=== PATIENT | female | born 1940 | race Caucasian/White ===

== ENCOUNTER → 2019-06-23 17:17 | Outpatient (CLI) | payer MEDICARE, SELFPAY ==
[2019-06-23 18:25] LABS: C-Reactive Protein Quant < 0.5 mg/dL (<1.0)
[2019-06-23 18:37] LABS: Erythrocyte Sedimentation Rate 9 MM/HR (0-20)
== END ==
PROVIDERS: Visit Provider Ophthalmology
DX: H34.8120 Central retinal vein occlusion, left eye, with macular edema (principal)
CPT/HCPCS: 36415; 85651; 86140

== ENCOUNTER 2020-02-17 15:35 | Inpatient (IN) | payer MEDICARE, SELFPAY ==
[2020-02-17] VITALS (10 sets, daily range): BP systolic 97–127; BP diastolic 44–59; PULSE 59–72; RESP 12–18; TEMP 35.9–36.9; O2SAT 96–100; BMI 18.6
--- NOTE | 2020-02-17 15:55 | ED_ITS ---
HPI - General Adult General Chief complaint: GI Bleed Stated complaint: 2x hx fatigue/ loss of appetite/ gi symptoms Time Seen by Provider: 02/17/20 15:39 Source: patient and family () Mode of arrival: Ambulatory Limitations: no limitations History of Present Illness HPI narrative: 79-year-old female here with her for evaluation of fatigue and concerns for GI bleed and anemia. Reported that for the past several days if not week patient has been very fatigued did home difficulty standing. Lightheaded. She told her today that she has been having dark colored stools for the past several days. Had a very large black bowel movement just prior to arrival. They called their primary doctor earlier today who sent them to the hospital to get labs. After arrival here in the hospital patient's thought that she should check in to the emergency department. Patient denies any abdominal pain. She did admit to having the black colored stools. Denies any alcohol use. Denies any nonsteroidal anti-inflammatory use. Is on Eliquis for atrial fibrillation. Her last dose was greater than 24 hours ago. Has never had a GI bleed in the past. She states that her last colonoscopy was 14 months ago and has reports that it was ?normal? Related Data Allergies Allergy/AdvReac Type Severity Reaction Status Date / Time No Known Drug Allergies Allergy Verified 02/17/20 16:45 Review of Systems Constitutional Constitutional: Reports fatigue, Denies fever(s) and Reports malaise Cardiovascular Cardiovascular: Denies chest pain and Denies dyspnea Respiratory Respiratory: Denies dyspnea Gastrointestinal Gastrointestinal: Denies abdominal pain, Denies nausea and Denies vomiting Comments: Dark colored stools Genitourinary Genitourinary: Denies dysuria Musculoskeletal Musculoskeletal: Denies myalgias and Denies arthralgias Integumentary/Breasts Skin/Breast: Denies rash Endocrine Endocrine: Reports fatigue Hematologic/Lymphatic Hematologic/Lymphatic: Denies easy bleeding and Denies easy bruising Patient History Medical History Atrial fibrillation (Acute) Central retinal vein occlusion of right eye (Acute) Diverticulosis (Acute) Hypercholesterolemia (Acute) Hypertension (Acute) Kyphosis (Acute) Mild cognitive impairment (Acute) Osteoporosis (Acute) Scoliosis (Acute) Social History marital status: lives independently: Yes Smoking Status: Former smoker Exam Initial Vital Signs Initial Vital Signs: Vital Signs Temperature 96.7 F L 02/17/20 15:35 Pulse Rate 66 02/17/20 15:35 Respiratory Rate 14 02/17/20 15:35 Blood Pressure 100/46 L 02/17/20 15:35 Pulse Oximetry 99 02/17/20 15:35 Const General: cooperative, comfortable and well developed Limitations: mental status not altered HENMT Head: normal to inspection and normocephalic Resp Effort & Inspection: normal respiratory effort Auscultation: clear to auscultation bilaterally Cardio Rate: regular rate Rhythm: regular rhythm GI Inspection: non-distended Palpation: soft and No firm Rectal Exam: normal sphincter tone and heme positive stool Skin Lesions: no lesions Rashes: no rashes Neuro General: alert and awake Speech: speech normal Extrem General: normal to inspection and capillary refill normal Scores GCS Lovely coma scale eye opening: Spontaneous [place] coma scale verbal response: Orientated Lovely coma scale motor response: Obey commands [place] coma scale total score: 15 Course Orders Ordered: ED Orders 02/17/20 15:57 Complete Blood Count AUTO DIFF Stat Comprehensive Metabolic Panel Stat Ethanol (ETOH) Stat Lipase Stat Packed Cells Stat Partial Thromboplastin Time Stat Prothrombin Time INR Stat Type and Screen Stat 02/17/20 16:50 Consult to General Surgery Stat Pantoprazole Sodium 80 mg/ (Sodium Chloride) 100 mls @ 10 mls/hr IV CONT BRINDA Discontinued Medications Pantoprazole Sodium (Protonix) 80 mg IV NOW ONE Stop: 02/17/20 16:50 Vital Signs Vital signs: Vital Signs - 8 hr 02/17/20 15:35 02/17/20 16:35 Temperature 96.7 F L 96.9 F L Pulse Rate 66 64 Respiratory Rate 14 14 Blood Pressure 100/46 L Blood Pressure [Left Arm] 100/46 L Pulse Oximetry 99 100 Medical Decision Making Medical Records Medical records reviewed: Yes I reviewed the patient's medical records. Lab Data Lab results reviewed: Yes I reviewed the patient's lab results. Result diagrams: 02/17/20 15:57 02/17/20 15:57 Labs: Lab Results 02/17/20 02/17/20 02/17/20 Range/Units 15:57 15:57 15:57 WBC 10.6 (4.5-11.0) X10^3/uL RBC 2.01 L (4.0-5.2) X10^6/uL Hgb 6.1 L* (12.0-16.0) g/dL Hct 17.9 L* (36-46) % MCV 89.2 (80-100) fL MCH 30.2 (26-34) PG MCHC 33.8 (30-36) % RDW 14.9 H (11.6-14.8) % Plt Count 354 (150-400) X10^3/uL Neut % (Auto) 86.6 H (50-75) % Lymph % (Auto) 7.3 L (25-40) % [place] % (Auto) 5.8 (3-14) % Eos % (Auto) 0.0 L (2-4) % Baso % (Auto) 0.3 (0-2) % Neut # (Auto) 9200 H (6374-0619) /uL Lymph # (Auto) 800 L (9102-5134) /uL [place] # (Auto) 600 (0-900) /uL Eos # (Auto) 0 (0-450) /uL Baso # (Auto) 0 (0-100) /uL PT 17.0 H (10.1-12.7) SECONDS INR 1.5 H (0.9-1.3) APTT 26 L (26.4-36.2) SECONDS Sodium 134 L (137-145) mmol/L Potassium 4.4 (3.4-5.1) mmol/L Chloride 100 (98-107) mmol/L Carbon Dioxide 20 L (22-32) mmol/L BUN 30 H (7-17) mg/dL Creatinine 1.14 H (0.52-1.04) mg/dL Estimated GFR 46.1 L (>60) mL/min BUN/Creatinine Ratio 26.3 H (6-22) Glucose 155 H (80-110) mg/dL Calcium 9.7 (8.4-10.2) mg/dL Total Bilirubin 0.4 (0.2-1.3) mg/dL AST 29 (14-36) IU/L ALT 16 (<35) IU/L Alkaline Phosphatase 55 (38-126) U/L Total Protein 6.6 (6.3-8.2) g/dL Albumin 3.8 (3.5-5.0) g/dL Globulin 2.8 (1.7-4.1) g/dL Albumin/Globulin Ratio 1.4 (1.0-2.8) Lipase 248 (23-300) U/L Ethyl Alcohol < 10 ( - 10) mg/dL Blood Type Antibody Screen Crossmatch 02/17/20 Range/Units 15:57 WBC (4.5-11.0) X10^3/uL RBC (4.0-5.2) X10^6/uL Hgb (12.0-16.0) g/dL Hct (36-46) % MCV (80-100) fL MCH (26-34) PG MCHC (30-36) % RDW (11.6-14.8) % Plt Count (150-400) X10^3/uL Neut % (Auto) (50-75) % Lymph % (Auto) (25-40) % [place] % (Auto) (3-14) % Eos % (Auto) (2-4) % Baso % (Auto) (0-2) % Neut # (Auto) (5838-0832) /uL Lymph # (Auto) (1549-0713) /uL [place] # (Auto) (0-900) /uL Eos # (Auto) (0-450) /uL Baso # (Auto) (0-100) /uL PT (10.1-12.7) SECONDS INR (0.9-1.3) APTT (26.4-36.2) SECONDS Sodium (137-145) mmol/L Potassium (3.4-5.1) mmol/L Chloride (98-107) mmol/L Carbon Dioxide (22-32) mmol/L BUN (7-17) mg/dL Creatinine (0.52-1.04) mg/dL Estimated GFR (>60) mL/min BUN/Creatinine Ratio (6-22) Glucose (80-110) mg/dL Calcium (8.4-10.2) mg/dL Total Bilirubin (0.2-1.3) mg/dL AST (14-36) IU/L ALT (<35) IU/L Alkaline Phosphatase (38-126) U/L Total Protein (6.3-8.2) g/dL Albumin (3.5-5.0) g/dL Globulin (1.7-4.1) g/dL Albumin/Globulin Ratio (1.0-2.8) Lipase (23-300) U/L Ethyl Alcohol ( - 10) mg/dL Blood Type O Positive Antibody Screen Negative Crossmatch See Detail ECG Data Attestation: I personally reviewed and interpreted this ECG as follows: Prior ECG tracings: not available for review Interpretation: Sinus rhythm Ventricular rate is 61 Normal axis Normal QRS Normal QTC Nonspecific ST T wave changes MDM Narrative Medical decision making narrative: Patient not tachycardic, not hypotensive. Does have heme-positive stool. H&H low. Blood ordered. Protonix started. I do suspect this is related to her anticoagulation. Her last dose of anticoagulation was greater than 24 hours ago. Discussed the case with Dr. Ezio rand with internal medicine who will admit. Discussed case with general surgery who evaluated the patient in the emergency department. Discussed the admission with the patient and her who is at bedside. They expressed understanding and agreement. Critical Care Time Critical Care Time Critical Care Time: Yes Total Critical Care Time: 35 Attestation: The high probability of a clinically significant, sudden or life threatening deterioration of the cardiovascular, hemodynamically system(s) required my full and direct attention, intervention and personal management. The aggregate critical care time was 35 minutes. This time is in addition to time spent performing reported procedures but includes the following: [] Data Review and interpretation [] Patient assessment and monitoring of vital signs [] Documentation [] Medication orders and management Discharge Plan Departure Patient Disposition: Admitted As Inpatient Clinical Impression: GI bleed Qualifiers: GI bleed type/associated pathology: unspecified gastrointestinal hemorrhage type Qualified Code(s): K92.2 - Gastrointestinal hemorrhage, unspecified Anemia Qualifiers: Anemia type: unspecified type Qualified Code(s): D64.9 - Anemia, unspecified Admit Date/Time: 02/17/20 16:57 Admit Provider: Memo Moncada
[2020-02-17 16:16] LABS: INR 1.5 (0.9-1.3)
[2020-02-17 16:19] LABS: PTT Partial Thromboplastin Tim 26 SECONDS (26.4-36.2)
[2020-02-17 16:21] LABS: Alanine Aminotransferase 16 IU/L (<35); Albumin 3.8 g/dL (3.5-5.0); Albumin Globulin Ratio 1.4 (1.0-2.8); Alkaline Phosphatase 55 U/L (38-126); Aspartate Aminotransferase 29 IU/L (14-36); BUN Creatinine Ratio 26.3 (6-22); Bilirubin Total 0.4 mg/dL (0.2-1.3); Blood Urea Nitrogen 30 mg/dL (7-17); Calcium 9.7 mg/dL (8.4-10.2); Carbon Dioxide 20 mmol/L (22-32); Chloride 100 mmol/L (98-107); Estimated Glomerular Filt Rate 46.1 mL/min (>60); Ethanol (ETOH) < 10 mg/dL; Globulin 2.8 g/dL (1.7-4.1); Glucose 155 mg/dL (80-110); HEMOLYSIS < 15 (0-50); Lipase 248 U/L (23-300); Potassium 4.4 mmol/L (3.4-5.1); Sodium 134 mmol/L (137-145); Total Protein 6.6 g/dL (6.3-8.2)
[2020-02-17 16:24] LABS: Eosinophils Absolute Auto 0 /uL (0-450); Lymphocytes Absolute Auto 800 /uL (1100-4500); Monocytes Absolute Auto 600 /uL (0-900)
[2020-02-17 16:28] LABS: Add Manual Diff / Slide Review NO; Basophils Absolute Auto 0 /uL (0-100); Basophils Percent Auto 0.3 % (0-2); Lymphocytes Percent Auto 7.3 % (25-40); Mean Corpuscular HGB Conc 33.8 % (30-36); Mean Corpuscular Hemoglobin 30.2 PG (26-34); Mean Corpuscular Volume 89.2 fL (80-100); Monocytes Percent Auto 5.8 % (3-14); Neutrophils Absolute Auto 9200 /uL (1500-7000); Neutrophils Percent Auto 86.6 % (50-75); Platelet Count 354 X10^3/uL (150-400); Red Blood Cell Count 2.01 X10^6/uL (4.0-5.2); Red Cell Distribution Width 14.9 % (11.6-14.8); White Blood Cell Count 10.6 X10^3/uL (4.5-11.0)
[2020-02-17 16:30] LABS: Hemoglobin 6.1 g/dL (12.0-16.0)
[2020-02-17 16:31] LABS: Hematocrit 17.9 % (36-46)
--- NOTE | 2020-02-17 16:38 | PC.NURSE ---
Patient is not following commands appropriately. She has cold pale skin on her arms. Her eye beds are pale and white.
--- NOTE | 2020-02-17 17:18 | PM.CN ---
History of Present Illness Consult details Date Patient Seen: 02/17/20 Time Patient Seen: 17:18 Chief complaint: 2x hx fatigue/ loss of appetite/ gi symptoms Reason for consult: GI bleed Requesting provider: Reji Zepeda Narrative: This is a 79-year-old woman with past medical history of paroxysmal atrial fibrillation on apixaban, hypertension, hyperlipidemia, osteoporosis, and mild cognitive impairment who presented to the emergency room with several days of feeling unwell and some dark stools. She c/o feeling fatigued and lightheaded. She denies any abdominal pain, nausea, vomiting, post prandial pain, or bloating. She reports very dark stools for the past couple of days. Her reports some frequent NSAID use for her chronic back pain which she takes every day, but he is unable to recall what exactly she was taking. She is on Eliquis for atrial fibrillation and her stopped giving this to her yesterday morning over concern for possible bleeding. She has never had bleeding in the past, and report a colonoscopy 14 months ago stating that it was reportedly normal. It was also noted that her colon was very tortuous and the endoscopist had great difficulty reaching the cecum. It was not clear from their recollection whether the cecum was actually reached. Labs in the ER revealed a hemoglobin of 6.1, and platelet count of 354. INR was 1.5. Pt was hemodynamically stable. 2 units PRBC were ordered for transfusion. Home meds: Metoprolol 100 mg b.i.d., amlodipine 5 mg daily, losartan 100 mg daily, simvastatin 20 mg, potassium chloride 10 mEq, metoprolol 25 mg as needed for rapid heart rate, donepezil 10 mg, Eliquis 5 mg b.i.d., Ativan 0.5 mg b.i.d. as needed ROS: All 13 systems reviewed with the patient and are negative unless otherwise stated. PE: Narrative: GENERAL APPEARANCE: Elderly female, pale, WDWN, in no distress; appears stated age. SKIN: Inspection of the skin reveals no rashes, ulcerations or petechiae. HEENT: Normocephalic atraumatic, extraocular muscles are intact, mucous membranes are moist, neck is supple without adenopathy NECK: Supple and symmetric. There was no thyroid enlargement, and no tenderness, or masses were felt. CHEST: Normal AP diameter and normal contour; normal chest expansion LUNGS: Non tachypneic; breathing comfortably and satting well on room air CARDIOVASCULAR: Regular rate and rhythm; no LE edema. ABDOMEN: Soft and nontender with normal bowel sounds. No masses or scars. MUSCULOSKELETAL: There was no tenderness or effusions noted. Muscle strength and tone were normal. EXTREMITIES: No cyanosis, clubbing or edema. NEUROLOGIC: Alert. Normal affect. Strength is +5/5 in the Upper Extremities and Lower Extremities Bilaterally. Sensation to touch was normal. Meds Home Medications and Allergies Allergies Allergy/AdvReac Type Severity Reaction Status Date / Time No Known Drug Allergies Allergy Verified 02/17/20 16:45 Exam Vital Signs (past 8 hours): - 02/17/20 15:35 02/17/20 16:35 Temperature 96.7 F L 96.9 F L Pulse Rate 66 64 Respiratory Rate 14 14 Blood Pressure 100/46 L Blood Pressure [Left Arm] 100/46 L Pulse Oximetry 99 100 Oxygen Delivery Method Room Air Objective Labs Result Diagrams: 02/17/20 15:57 02/17/20 15:57 Labs: Laboratory Results - last 24 hr 02/17/20 02/17/20 02/17/20 15:57 15:57 15:57 WBC 10.6 RBC 2.01 L Hgb 6.1 L* Hct 17.9 L* MCV 89.2 MCH 30.2 MCHC 33.8 RDW 14.9 H Plt Count 354 Neut % (Auto) 86.6 H Lymph % (Auto) 7.3 L [place] % (Auto) 5.8 Eos % (Auto) 0.0 L Baso % (Auto) 0.3 Neut # (Auto) 9200 H Lymph # (Auto) 800 L [place] # (Auto) 600 Eos # (Auto) 0 Baso # (Auto) 0 PT 17.0 H INR 1.5 H APTT 26 L Sodium 134 L Potassium 4.4 Chloride 100 Carbon Dioxide 20 L BUN 30 H Creatinine 1.14 H Estimated GFR 46.1 L BUN/Creatinine Ratio 26.3 H Glucose 155 H Calcium 9.7 Total Bilirubin 0.4 AST 29 ALT 16 Alkaline Phosphatase 55 Total Protein 6.6 Albumin 3.8 Globulin 2.8 Albumin/Globulin Ratio 1.4 Lipase 248 Ethyl Alcohol < 10 Blood Type Antibody Screen Crossmatch 02/17/20 15:57 WBC RBC Hgb Hct MCV MCH MCHC RDW Plt Count Neut % (Auto) Lymph % (Auto) [place] % (Auto) Eos % (Auto) Baso % (Auto) Neut # (Auto) Lymph # (Auto) [place] # (Auto) Eos # (Auto) Baso # (Auto) PT INR APTT Sodium Potassium Chloride Carbon Dioxide BUN Creatinine Estimated GFR BUN/Creatinine Ratio Glucose Calcium Total Bilirubin AST ALT Alkaline Phosphatase Total Protein Albumin Globulin Albumin/Globulin Ratio Lipase Ethyl Alcohol Blood Type O Positive Antibody Screen Negative Crossmatch See Detail Assessment & Plan Assessment and plan (1) GI bleed: Qualifiers: GI bleed type/associated pathology: unspecified gastrointestinal hemorrhage type Qualified Code(s): K92.2 - Gastrointestinal hemorrhage, unspecified Current visit: Yes Status: Acute (2) Anemia: Qualifiers: Anemia type: unspecified type Qualified Code(s): D64.9 - Anemia, unspecified Current visit: Yes Status: Acute (3) Mild cognitive impairment: Current visit: Yes Status: Acute (4) Hypertension: Current visit: Yes Status: Acute (5) Atrial fibrillation: Current visit: Yes Status: Acute Assessment & Plan narrative: Mere Rivero is a 79-year-old woman with PMH of paroxysmal atrial fibrillation on apixaban, hypertension, hyperlipidemia, osteoporosis, and mild cognitive impairment who presented to the emergency room with dark stools and hgb 6.1. She is admitted to the medicine service with a GI bleed likely secondary to upper source and symptomatic anemia. Recommendations: NPO except for water and ice chips for comfort Hold anticoagulation Protonix 40mg IV BID Transfuse per hospitalist Home meds as appropriate, with exception of blood thinners Please get outside provider documentation of her prior colonoscopy Possible EGD tomorrow if medically stable and transfused up
[2020-02-17] MEDS: PANTOPRAZOLE 40 MG VIAL 80 MG IV (17:26)
[2020-02-17] MEDS: PANTOPRAZOLE 80 MG in SODIUM CHLORIDE 0.9% 100 ML 10 ML IV (17:27)
--- NOTE | 2020-02-17 18:25 | PM.HP.1 ---
History of Present Illness History of Present Illness Date Patient Seen: 02/17/20 Time Patient Seen: 17:30 Chief complaint: 2x hx fatigue/ loss of appetite/ gi symptoms Narrative: Mere Rivero is a 79-year-old female with past medical history of paroxysmal atrial fibrillation on apixaban, hypertension, hyperlipidemia, osteoporosis, and mild cognitive impairment who presented to the emergency room with dark stools. Patient and her report that she has not been feeling well for the past week or so, feeling very fatigued and sometimes lightheaded when standing. She denies any shortness of breath, or chest pain even with exertion but has not felt much energy at all to even walk. She denies any abdominal pain. She admits to having very dark stools for the past couple of days. Her does endorse some NSAID use for her chronic back pain which she takes every day, but he is unable to recall which 1 she was taking. She is on Eliquis for atrial fibrillation and her stopped giving this to her yesterday morning over concern for possible bleeding. She has never had bleeding in the past, and report a colonoscopy 14 months ago stating that it was unremarkable. In the emergency room, patient initially had borderline low blood pressures, but was not tachycardic and other vital signs were unremarkable. Her blood pressure improved after fluids. Initial labs were remarkable for hemoglobin of 6.1, hematocrit 17.9, platelet count of 354. INR was 1.5. Chemistry showed a sodium of 134, BUN of 30, creatinine of 1.14 up from previous value of 0.8 in 2017, and her glucose was 155. Alcohol level was negative, lipase was unremarkable at 248, and LFTs were also unremarkable. Patient was ordered for 2 units PRBCs in the emergency room. Home meds: Metoprolol 100 mg b.i.d., amlodipine 5 mg daily, losartan 100 mg daily, simvastatin 20 mg, potassium chloride 10 mEq, metoprolol 25 mg as needed for rapid heart rate, donepezil 10 mg, Eliquis 5 mg b.i.d., Ativan 0.5 mg b.i.d. as needed Patient History Medical History Atrial fibrillation (Acute) Central retinal vein occlusion of right eye (Acute) Diverticulosis (Acute) Hypercholesterolemia (Acute) Hypertension (Acute) Kyphosis (Acute) Mild cognitive impairment (Acute) Osteoporosis (Acute) Scoliosis (Acute) Family & Social History Social History: lives independently Yes Safety & Behavioral: Feels Safe in Current Yes Environment Been Physically Hurt or No Threatened By a Person Tobacco & Substance use: Smoking Status Former smoker alcohol intake frequency 0-2 drinks per day Substance Use Type does not use Meds Home Medications and Allergies Allergies Allergy/AdvReac Type Severity Reaction Status Date / Time No Known Drug Allergies Allergy Verified 02/17/20 16:45 Review of Systems Review of Systems Narrative: All other systems reviewed with the patient and are negative unless otherwise stated. Exam Vital Signs (past 8 hours): - 02/17/20 15:35 02/17/20 16:35 02/17/20 17:54 Temperature 96.7 F L 96.9 F L 97.6 F Pulse Rate 66 64 68 Respiratory Rate 14 14 12 Blood Pressure 100/46 L 102/58 L Blood Pressure [Left Arm] 100/46 L Pulse Oximetry 99 100 02/17/20 18:06 02/17/20 18:12 Temperature 98.5 F 98.5 F Pulse Rate 59 L 66 Respiratory Rate 14 12 Blood Pressure 114/55 L 114/55 L Blood Pressure [Left Arm] Pulse Oximetry Oxygen Delivery Method Room Air Narrative Exam Narrative: GENERAL APPEARANCE: Elderly female, pale, but Well developed, well nourished, in no acute distress. SKIN: Inspection of the skin reveals no rashes, ulcerations or petechiae. HEENT: Normocephalic atraumatic, extraocular muscles are intact, oropharynx is clear and mucous membranes are moist, neck is supple without adenopathy NECK: Supple and symmetric. There was no thyroid enlargement, and no tenderness, or masses were felt. CHEST: Normal AP diameter and normal contour without any kyphoscoliosis. LUNGS: Auscultation of the lungs revealed no wheezes, rhonchi, or rales. CARDIOVASCULAR: There was a regular rate and rhythm without any murmurs, gallops, rubs. Peripheral pulses were 2+ and symmetric. ABDOMEN: Soft and nontender with normal bowel sounds. No ascites was noted. MUSCULOSKELETAL: There was no tenderness or effusions noted. Muscle strength and tone were normal. EXTREMITIES: No cyanosis, clubbing or edema. NEUROLOGIC: Alert. Normal affect. Strength is +5/5 in the Upper Extremities and Lower Extremities Bilaterally. Sensation to touch was normal. Objective Labs Result Diagrams: 02/17/20 15:57 02/17/20 15:57 Labs: Laboratory Results - last 24 hr 02/17/20 02/17/20 02/17/20 15:57 15:57 15:57 WBC 10.6 RBC 2.01 L Hgb 6.1 L* Hct 17.9 L* MCV 89.2 MCH 30.2 MCHC 33.8 RDW 14.9 H Plt Count 354 Neut % (Auto) 86.6 H Lymph % (Auto) 7.3 L [place] % (Auto) 5.8 Eos % (Auto) 0.0 L Baso % (Auto) 0.3 Neut # (Auto) 9200 H Lymph # (Auto) 800 L [place] # (Auto) 600 Eos # (Auto) 0 Baso # (Auto) 0 PT 17.0 H INR 1.5 H APTT 26 L Sodium 134 L Potassium 4.4 Chloride 100 Carbon Dioxide 20 L BUN 30 H Creatinine 1.14 H Estimated GFR 46.1 L BUN/Creatinine Ratio 26.3 H Glucose 155 H Calcium 9.7 Total Bilirubin 0.4 AST 29 ALT 16 Alkaline Phosphatase 55 Total Protein 6.6 Albumin 3.8 Globulin 2.8 Albumin/Globulin Ratio 1.4 Lipase 248 Ethyl Alcohol < 10 Blood Type Antibody Screen Crossmatch 02/17/20 15:57 WBC RBC Hgb Hct MCV MCH MCHC RDW Plt Count Neut % (Auto) Lymph % (Auto) [place] % (Auto) Eos % (Auto) Baso % (Auto) Neut # (Auto) Lymph # (Auto) [place] # (Auto) Eos # (Auto) Baso # (Auto) PT INR APTT Sodium Potassium Chloride Carbon Dioxide BUN Creatinine Estimated GFR BUN/Creatinine Ratio Glucose Calcium Total Bilirubin AST ALT Alkaline Phosphatase Total Protein Albumin Globulin Albumin/Globulin Ratio Lipase Ethyl Alcohol Blood Type O Positive Antibody Screen Negative Crossmatch See Detail Assessment & Plan Assessment & Plan narrative: Mere Rivero is a 79-year-old female with past medical history of paroxysmal atrial fibrillation on apixaban, hypertension, hyperlipidemia, osteoporosis, and mild cognitive impairment who presented to the emergency room with dark stools. She is admitted to the medicine service with a GI bleed likely secondary to upper source and symptomatic anemia. 1. GI bleed, acute, present on admission -patient with recent NSAID use as reported by the , and use of apixaban for paroxysmal atrial fibrillation. Stools were guaiac positive in the emergency room. - has held home apixaban, last dose yesterday morning. Will continue to hold -NPO, IV fluids -Dr. Reyna of general surgery has seen the patient and could potentially go for endoscopy tomorrow -check a post transfusion CBC, continued to follow hemoglobin and hematocrit -given Protonix 80 mg x 1, continue 40 mg b.i.d. IV -sources likely upper given elevated BUN, recent NSAID use, and recent report of negative colonoscopy a little over 1 year ago. 2. Acute blood loss anemia, secondary to above GI bleed, present on admission -presenting hemoglobin of 6.1, with symptoms of shortness of breath and dizziness. -2 unit PRBC transfusion in the emergency room, will check post transfusion CBC -continue management of GI bleeding as noted above 3. Paroxysmal atrial fibrillation -continue home rate control with metoprolol IV q.6 hours for now, once able to tolerate p.o. intake convert to oral medications 4. Hypertension, chronic -will hold home losartan 100 mg, and amlodipine 5 mg 5. Hyperlipidemia, chronic -continue simvastatin 20 mg once tolerating oral intake 6. Cognitive impairment, chronic -continue home donepezil 10 mg once tolerating oral intake, and Ativan 0.5 mg b.i.d. 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
--- NOTE | 2020-02-17 18:34 | PC.NURSE ---
patient signed consent for blood prior to receiving packed RBCs
[2020-02-17 20:22] LABS: COVID19 -Nasal RAPID Negative (Negative)
[2020-02-17] MEDS: SODIUM CHLORIDE 0.9% 1,000 ML 75 ML IV (21:35)
[2020-02-17] MEDS: LORazepam 2 MG/ML INJ 0.5 MG IV (21:50)
--- NOTE | 2020-02-17 23:36 | PC.NURSE ---
Patient arrived to floor, A&O to self and , Pt thought she was still in the ED at arrival to AC, and thought she was in [place]. Patient is very forgetful but easily re-directable and cooperative w/ staff members and plan of care. Patient arrived infusion a protonix gtt and 1 of 2 units of PRBC. Pt at times patient slurs words and has a little word salad, ED nurse had reported this same findings to this nurse in report. Patient VSS, no notable reactions to transfusion and is now on 2 of 2 units. Pt is refusing to wear SCD's, was reluctant to allow staff to do skin assessment but eventually allowed. Pt is upset about plan to remain NPO until procedure can be done tomorrow. call light w/in reach, bed in low pos. alarm active. Pt is aware to use call light w/ needs but often calls out when staff passes by room, needs reminding to use call light.
[2020-02-18] VITALS (26 sets, daily range): BP systolic 94–150; BP diastolic 46–92; PULSE 62–128; RESP 15–136; TEMP 35.8–37.5; O2SAT 90–100; BMI 18.6
--- NOTE | 2020-02-18 | PATH_ITS ---
[facility] Accession Number: [id number] . 01 Material submitted: . PART A: duodenum - DUODENAL BIOPSY PART B: gastrointestinal site - GASTRIC ANTRUM PART C: gastrointestinal site - GASTRIC BODY PART D: esophagus - DISTAL ESOPHAGUS BIOPSY . 01 Clinical history: . 2X HX FATIGUE, LOSS OF APPETITE, GI SYMPTOMS . 02 Diagnosis: A. Duodenum, Biopsy: Duodenal mucosa with gastric heterotopia. Negative for intraepithelial lymphocytosis or villous blunting. Negative for dysplasia and malignancy. . B. Stomach, Antrum, Biopsy: Acute erosive gastritis Negative for Helicobacter organisms by immunohistochemistry. Negative for intestinal metaplasia. Negative for dysplasia and malignancy. . C. Stomach, Body, Biopsy: Body-type mucosa with reactive epithelial changes. Negative for Helicobacter organisms by immunohistochemistry. Negative for intestinal metaplasia. Negative for dysplasia and malignancy. . D. Distal Esophagus, Biopsy: Squamocolumnar junctional mucosa with no diagnostic abnormality. Negative for intestinal metaplasia. Negative for dysplasia and malignancy. . [facility] 02/23/2020 1429 Local . 02 Electronically signed: . Yuliana Ellis MD, Pathologist NPI- [id number] . 01 Gross description: . Part A: DUODENAL BIOPSY: Received in formalin is 1 fragment(s) of ramirez, soft tissue measuring 0.2 x 0.1 x 0.1 cm submitted entirely in 1 cassette(s) Part B: GASTRIC ANTRUM: Received in formalin are 2 fragment(s) of ramirez, soft tissue measuring 0.1 x 0.1 x 0.1 cm to 0.2 x 0.1 x 0.1 cm submitted entirely in 1 cassette(s) Part C: GASTRIC BODY: Received in formalin is 1 fragment(s) of ramirez, soft tissue measuring 0.1 x 0.1 x 0.1 cm submitted entirely in 1 cassette(s) Part D: DISTAL ESOPHAGUS BIOPSY: Received in formalin are 2 fragment(s) of ramirez, soft tissue measuring 0.1 x 0.1 x 0.1 cm to 0.2 x 0.2 x 0.2 cm submitted entirely in 1 cassette(s) /[facility] 02/18/2020 2101 Local . 02 Microscopic: . B., C. Immunohistochemical stains were performed to evaluate for Helicobacter organisms in blocks B and C, and are both negative. The control stain showed appropriate reactivity. . D. An Alcian blue stain was performed to evaluate for intestinal metaplasia, and is negative. The control stain showed appropriate reactivity. . . * This test was developed and its performance characteristics determined by [facility]. It has not been cleared or approved by the U.S. Food and Drug Administration. The FDA has determined that such clearance or approval is not necessary. This test is used for clinical purposes. It should not be regarded as investigational or for research. . 02 Pathologist provided ICD-10: R10.9 . 02 CPT . 476186, 505091, 267385, 509439, 755748, F76059 Performed at: [facility] [address] [facility], [place], [place] [id number] MD Andrés Russo MD Phone: [phone] Performed at: 02 [facility] [place] [address] [place], [place] [id number] MD Yuliana Ellis MD Phone: [phone]
[2020-02-18] MEDS: METOPROLOL TARTRATE 5 MG/5 ML INJ IV ×2 (01:07→06:43)
[2020-02-18 05:51] LABS: Add Manual Diff / Slide Review NO; Basophils Absolute Auto 0 /uL (0-100); Basophils Percent Auto 0.4 % (0-2); Eosinophils Absolute Auto 0 /uL (0-450); Eosinophils Percent Auto 0.6 % (2-4); Hematocrit 25.1 % (36-46); Hemoglobin 8.7 g/dL (12.0-16.0); Lymphocytes Absolute Auto 1700 /uL (1100-4500); Lymphocytes Percent Auto 20.7 % (25-40); Mean Corpuscular HGB Conc 34.8 % (30-36); Mean Corpuscular Hemoglobin 30.3 PG (26-34); Mean Corpuscular Volume 86.8 fL (80-100); Monocytes Absolute Auto 900 /uL (0-900); Monocytes Percent Auto 11.6 % (3-14); Neutrophils Absolute Auto 5400 /uL (1500-7000); Neutrophils Percent Auto 66.7 % (50-75); Platelet Count 269 X10^3/uL (150-400); Red Blood Cell Count 2.89 X10^6/uL (4.0-5.2); Red Cell Distribution Width 14.6 % (11.6-14.8); White Blood Cell Count 8.1 X10^3/uL (4.5-11.0)
[2020-02-18 05:59] LABS: Alanine Aminotransferase 13 IU/L (<35); Albumin 3.2 g/dL (3.5-5.0); Albumin Globulin Ratio 1.3 (1.0-2.8); Alkaline Phosphatase 45 U/L (38-126); Aspartate Aminotransferase 25 IU/L (14-36); BUN Creatinine Ratio 25.8 (6-22); Bilirubin Total 1.1 mg/dL (0.2-1.3); Bilirubin Unconjugated 1.2 mg/dL (0.0-1.1); Blood Urea Nitrogen 23 mg/dL (7-17); Calcium 8.9 mg/dL (8.4-10.2); Carbon Dioxide 22 mmol/L (22-32); Chloride 107 mmol/L (98-107); Estimated Glomerular Filt Rate > 60.0 mL/min (>60); Globulin 2.5 g/dL (1.7-4.1); Glucose 81 mg/dL (80-110); HEMOLYSIS < 15 (0-50); Potassium 3.8 mmol/L (3.4-5.1); Sodium 136 mmol/L (137-145); Total Protein 5.7 g/dL (6.3-8.2)
[2020-02-18] MEDS: LORazepam 2 MG/ML INJ 0.5 MG IV ×3 (07:32→21:44)
[2020-02-18] MEDS: DEXTROSE 5%-0.45% NS 1,000 ML 75 ML IV (08:40)
--- NOTE | 2020-02-18 10:27 | PC.NURSE ---
Addendum entered by Jennifer Newton R.N. 02/18/20 13:32: Pt left to ENDO via transport wheelchair at 1330. Pt quite anxious stating she wish she had more warning as to being picked up earlier. Support provided. Original Note: Day Shift- Pt A&OX4, repeats statements and questions this morning, very anxious, states wanting to go home today. Do you have something to calm me down. PRN Ativan 0.5mg IV given at 0730 with good effect upon reassessment. Pt NPO, Denies nausea. theres nothing in there to make me nauseated. Blood glucose with AM lab draw was 81. BG finger stick checks ordered AC& HS, due to pt being NPO, will do Q6 hrs. Spoke with Dr. Moncada at 0745 if wanting to change IVF due to lower Blood glucose level. Verbal order to recheck finger stick glucose, and if level is below 90, switch IVF to D5 1/2 NS at 75mls/hr. Rechecked Finger stick glucose at 0830 by STEELSCOPE OPERATOR and level was 79 therefore IVF changed per new verbal order by Dr. Moncada as stated above at 0845.
[2020-02-18 12:12] LABS: Hematocrit 24.3 % (36-46); Hemoglobin 8.4 g/dL (12.0-16.0)
--- NOTE | 2020-02-18 13:15 | CM.IDA ---
Initial DCP Assessment Note: Patient is a 79 yo female, resident of [facility]. Patient presents w/ fatigue, loss of appetite, upper GI bleed is suspected. PCP: Dr Corbett Payer: JORDAN/GLENP Reviewed chart. Met briefly w/patient today, provided warm blankets w/assist from CAN LINE EXAMINERAydee Falk. Patient quite anxious today in , concerned about her NPO status and states it has been very difficult not to have any ice chips. Placed call to patient's spouse Edenilson Rivero P# [phone], introduced role. Spouse explains patient and he have been managing well at home, adult children live in [place]. [facility] is a supportive community and spouse feels confident about patient's return home when medically stable. No h/o SNF or HH. Patient is indp. and active at baseline, spouse explains PCP Dr Corbett has suggested patient has early Dementia/Alz and started patient on donepezil 10 mg once daily. Edenilson further explains patient doesn't like to talk about that which this TRANSPORTATION MAINTENANCE SUPERVISOR confirms is very typical in the beginning stages of Alz Dementia. Edenilson feels patient's short term memory loss is minimal at this time and she is able to complete all ADLs indp. Patient does not drive d/t recent loss of vision in her rt eye. Edenilson states he has a neighbor that is caring for a severely demented spouse at home and feels comfortable asking for neighbor's input re: resources as needed. P: DC home w/spouse assist via family pov is expected. r/o need for HH closer to DC Following closely for coordination of DC needs if/as they arise. HANK Isaac Discharge Planning/Care Management CM Discharge Assessment Start: 02/18/20 13:07 Freq: Status: Active Protocol: Document 02/18/20 13:07 JACINTA (Rec: 02/18/20 13:15 JACINTA [id number]) Discharge Planning Assessment Assigned Fender Finisher HANK Allen DPOA/Assigned Designee Name Edenilson Rivero, spouse Contact Information [phone] Advance Directives? Yes History Provided By Family Member,Significant Other,Medical Record Prior Living Arrangements House Household Members spouse Comment Recently lost vision in right eye Type of transporation used prior to Relies on Others admit Independent with ADL's Yes Is patient alert and oriented? Yes Needs Assistance With Managing Medications,Home Chores / Shopping Comment Spouse states short term memory loss, has a difficult time organizing. home donepezil 10 mg once tolerating oral intake, and Ativan 0.5 mg b.i.d. Comment Home Barriers to Discharge No Comment Spouse feels confident about taking patient home when she is medically cleared. Discharge Plan Home Transportation Arrangement Family Referrals Initiated None needed
--- NOTE | 2020-02-18 13:27 | PM.PREOP ---
Pre-operative Note COVID-19 COVID-19 status: Negative Result date/Date tested (Pos, Neg/Pending): 02/17/20 Interval Note History & Physical reviewed/Exam performed by Physician: Yes Changes to H&P: No H&P completed within 30 days and has changed as indicated here:: Risks and benefits of upper endoscopy, possible biopsies, possible procedures for hemostasis were discussed with the patient and her who desire to proceed with the above. Risks of bleeding, perforation, need for additional procedures were discussed.
[2020-02-18] MEDS: LACTATED RINGERS 1,000 ML 42 ML IV (13:46)
--- NOTE | 2020-02-18 14:33 | PM.OP.ENDO ---
Operative Date/Time/Diagnoses Date of procedure: 02/18/20 Time of procedure: 14:33 Pre-op diagnosis: GI bleed Post-op diagnosis: other (Gastritis, gastric ulcer x2 without active bleeding, mild distal esophagitis) Procedure & Clinicians Study performed: Esophagogastroduodenoscopy with biopsies of duodenum, gastric antrum, gastric body, and distal esophagus Same procedure as scheduled: Yes Indications: GI bleed Surgeon: Shalini Brown Procedure Notes SCOAP/Timeout: Performed Procedure in detail: The patient was brought to the room and placed in left lateral decubitus position with all bony prominences padded. General anesthesia was induced the patient was intubated. A bite block was positioned in the patient's mouth to protect the lips, teeth, and tongue for the procedure. A time-out was performed. The procedure was begun. The lubricated gastroscope was passed through the bite block and across the tongue and into the esophagus without incident. A tubular view of the esophagus was maintained as the scope was advanced through the esophagus and into the stomach. The scope was advanced through the stomach and to the pylorus. The scope was gently popped through the pylorus and into the duodenal bulb. The scope was flexed and advanced into the second and third portions of the duodenum. The 2nd and 3rd parts of the duodenum appeared normal. There were some mild erosions in the duodenal bulb, but no active bleeding. Biopsies were taken here.. The scope was withdrawn into the stomach. There was some moderate gastritis in the gastric antrum, and biopsies were taken here. There is no active bleeding at this site. There were 2 bleeding ulcers in the gastric body, and biopsies were taken at these sites. There was no active bleeding from these ulcers, but they had stigmata of recent bleeding.. The scope was retroflexed and the gastric cardia was examined. The hiatus [appeared normal]. There was no significant gapping of the hiatus. The scope was then straightened, and withdrawn into the esophagus. The Z-line was mildly irregular, but there were no large tongues of salmon mucosa coming up into the esophagus. Biopsies were taken of the distal esophagus.. The scope was then withdrawn through the esophagus with a tubular view. The scope was then withdrawn from the patient the procedure was concluded. The patient tolerated the procedure well and was transferred to the PACU in stable condition. Findings: gastric ulcer (X2) and gastritis Specimen(s): other (Biopsies of duodenal bulb, gastric antrum, gastric body x2, and distal esophagus) Complications: none Impression: The bleeding most likely from the gastritis, and gastric ulcers. It looks like her bleeding has stopped. I would hold her anticoagulation for now, and keep her on a PPI. If a repeat hemoglobin in a couple of weeks is normal, we could consider restarting her anticoagulation. She should come to follow up with me in the office to review the biopsy results. Post-procedure Recommendations: Other recommendation (Repeat EGD will depend on biopsy results) Follow up: weeks (2-3 weeks) Disposition: PACU (With plans to return to acute care tonight)
--- NOTE | 2020-02-18 14:55 | PM.PN.1 ---
Subjective Subjective Date Patient Seen: 02/18/20 Time Patient Seen: 14:56 Interval history: Mere Rivero is a 79-year-old female with past medical history of paroxysmal atrial fibrillation on apixaban, hypertension, hyperlipidemia, osteoporosis, and mild cognitive impairment who presented to the emergency room with dark stools. She was admitted with a GI bleed. Patient received 2 units PRBC transfusion overnight, adequate response to hemoglobin of 8.7 this morning and fairly stable at 8.4 at noon. Patient underwent endoscopy this afternoon with surgery, which revealed gastritis and some gastric ulcers without active bleeding. Patient denied complaints this morning, and felt that she had much more energy. She denied complaints of abdominal pain, nausea, vomiting. She was very thirsty throughout much of the day. Exam Vital Signs (past 8 hours): - 02/18/20 07:35 02/18/20 08:00 02/18/20 12:00 Temperature 98.6 F 99.5 F Pulse Rate 79 69 Respiratory Rate 18 16 Blood Pressure 132/67 143/70 H Pulse Oximetry 99 97 100 02/18/20 13:43 02/18/20 14:47 02/18/20 14:50 Temperature 99.3 F 97.4 F L Pulse Rate 63 65 71 Respiratory Rate 16 16 16 Blood Pressure 126/69 111/46 L 113/52 L Pulse Oximetry 99 95 94 Oxygen Delivery Method Room Air Oxygen Flow Rate 0 Narrative Exam Narrative: GENERAL APPEARANCE: Elderly female, pale, but Well developed, well nourished, in no acute distress. SKIN: Inspection of the skin reveals no rashes, ulcerations or petechiae. HEENT: Normocephalic atraumatic, extraocular muscles are intact, oropharynx is clear and mucous membranes are moist, neck is supple without adenopathy NECK: Supple and symmetric. There was no thyroid enlargement, and no tenderness, or masses were felt. CHEST: Normal AP diameter and normal contour without any kyphoscoliosis. LUNGS: Auscultation of the lungs revealed no wheezes, rhonchi, or rales. CARDIOVASCULAR: There was a regular rate and rhythm without any murmurs, gallops, rubs. Peripheral pulses were 2+ and symmetric. ABDOMEN: Soft and nontender with normal bowel sounds. No ascites was noted. MUSCULOSKELETAL: There was no tenderness or effusions noted. Muscle strength and tone were normal. EXTREMITIES: No cyanosis, clubbing or edema. NEUROLOGIC: Alert. Normal affect. Strength is +5/5 in the Upper Extremities and Lower Extremities Bilaterally. Sensation to touch was normal. Objective Labs Result Diagrams: 02/18/20 12:01 02/18/20 05:28 Labs: Laboratory Results - last 24 hr 02/17/20 02/17/20 02/17/20 15:57 15:57 15:57 WBC 10.6 RBC 2.01 L Hgb 6.1 L* Hct 17.9 L* MCV 89.2 MCH 30.2 MCHC 33.8 RDW 14.9 H Plt Count 354 Neut % (Auto) 86.6 H Lymph % (Auto) 7.3 L Wilbarger % (Auto) 5.8 Eos % (Auto) 0.0 L Baso % (Auto) 0.3 Neut # (Auto) 9200 H Lymph # (Auto) 800 L Wilbarger # (Auto) 600 Eos # (Auto) 0 Baso # (Auto) 0 PT 17.0 H INR 1.5 H APTT 26 L Sodium 134 L Potassium 4.4 Chloride 100 Carbon Dioxide 20 L BUN 30 H Creatinine 1.14 H Estimated GFR 46.1 L BUN/Creatinine Ratio 26.3 H Glucose 155 H Calcium 9.7 Magnesium Total Bilirubin 0.4 Conjugated Bilirubin Unconjugated Bilirubin AST 29 ALT 16 Alkaline Phosphatase 55 Total Protein 6.6 Albumin 3.8 Globulin 2.8 Albumin/Globulin Ratio 1.4 Lipase 248 Ethyl Alcohol < 10 COVID-19 PCR Blood Type Antibody Screen Crossmatch 02/17/20 02/17/20 02/18/20 15:57 18:10 05:28 WBC 8.1 RBC 2.89 L Hgb 8.7 L Hct 25.1 L MCV 86.8 MCH 30.3 MCHC 34.8 RDW 14.6 Plt Count 269 Neut % (Auto) 66.7 Lymph % (Auto) 20.7 L Wilbarger % (Auto) 11.6 Eos % (Auto) 0.6 L Baso % (Auto) 0.4 Neut # (Auto) 5400 Lymph # (Auto) 1700 Wilbarger # (Auto) 900 Eos # (Auto) 0 Baso # (Auto) 0 PT INR APTT Sodium Potassium Chloride Carbon Dioxide BUN Creatinine Estimated GFR BUN/Creatinine Ratio Glucose Calcium Magnesium Total Bilirubin Conjugated Bilirubin Unconjugated Bilirubin AST ALT Alkaline Phosphatase Total Protein Albumin Globulin Albumin/Globulin Ratio Lipase Ethyl Alcohol COVID-19 PCR Negative Blood Type O Positive Antibody Screen Negative Crossmatch See Detail 02/18/20 02/18/20 05:28 12:01 WBC RBC Hgb 8.4 L Hct 24.3 L MCV MCH MCHC RDW Plt Count Neut % (Auto) Lymph % (Auto) Wilbarger % (Auto) Eos % (Auto) Baso % (Auto) Neut # (Auto) Lymph # (Auto) Wilbarger # (Auto) Eos # (Auto) Baso # (Auto) PT INR APTT Sodium 136 L Potassium 3.8 Chloride 107 Carbon Dioxide 22 BUN 23 H Creatinine 0.89 Estimated GFR > 60.0 BUN/Creatinine Ratio 25.8 H Glucose 81 Calcium 8.9 Magnesium 2.0 Total Bilirubin 1.1 Conjugated Bilirubin 0.0 Unconjugated Bilirubin 1.2 H AST 25 ALT 13 Alkaline Phosphatase 45 Total Protein 5.7 L Albumin 3.2 L Globulin 2.5 Albumin/Globulin Ratio 1.3 Lipase Ethyl Alcohol COVID-19 PCR Blood Type Antibody Screen Crossmatch Assessment & Plan Assessment & Plan narrative: eMre Rivero is a 79-year-old female with past medical history of paroxysmal atrial fibrillation on apixaban, hypertension, hyperlipidemia, osteoporosis, and mild cognitive impairment who presented to the emergency room with dark stools. She is admitted to the medicine service with a GI bleed secondary to gastritis and peptic ulcer disease as revealed on her endoscopy today. 1. GI bleed, acute, present on admission -secondary to peptic ulcer disease and gastritis. -patient with recent NSAID use as reported by the , and use of apixaban for paroxysmal atrial fibrillation. Stools were guaiac positive in the emergency room. - has held home apixaban, last dose was morning February 15 Will continue to hold. Surgery would not recommend resumption of her anticoagulation until she has a repeat CBC in a couple of weeks and biopsy results are known. -advanced diet as tolerated after endoscopy -Dr. Reyna of general surgery was consulted and performed endoscopy this afternoon which revealed gastritis and peptic ulcer disease. Recommended PPI b.i.d. for at least 2 weeks, and follow-up with general surgery as well in about 2 weeks to review pathology results. -will check a morning CBC -given Protonix 80 mg x 1, and has remained on a Protonix infusion. Continue IV Protonix, can be in infusion or b.i.d. dosing until discharge and she can resume oral PPI b.i.d. following discharge. -colonoscopy report was obtained and is placed in the patient's chart from a year and half ago, was essentially negative. 2. Acute blood loss anemia, secondary to above GI bleed, present on admission -presenting hemoglobin of 6.1, with symptoms of shortness of breath and dizziness. -2 unit PRBC transfusion in the emergency room with response to a hemoglobin of 8.7. Slightly decreased to 8.4 on repeat. -continue management of GI bleeding as noted above 3. Paroxysmal atrial fibrillation -continue home rate control with metoprolol IV q.6 hours for now, once able to tolerate p.o. intake convert to oral medications 4. Hypertension, chronic -will hold home losartan 100 mg, and amlodipine 5 mg for now. 5. Hyperlipidemia, chronic -continue simvastatin 20 mg once tolerating oral intake 6. Cognitive impairment, chronic -continue home donepezil 10 mg once tolerating oral intake, and Ativan 0.5 mg b.i.d. 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 Anticipate discharge home in the next 24 hours, possibly tomorrow morning if her hemoglobin is stable. DVT: On hold given GI bleeding, continue SCDs COVID-19 COVID-19 status: Negative
--- NOTE | 2020-02-18 15:03 | SUR.PHASEI ---
Repositioned patient in bed for comfort.
[2020-02-18] MEDS: METOPROLOL ER 50 MG TABLET PO (17:33)
--- NOTE | 2020-02-18 20:01 | PC.NURSE ---
cardiac 1950 postoperatively pt's HR was a-fib RVR. pt has now converted to NSR in the 60s.
[2020-02-18] MEDS: PANTOPRAZOLE 40 MG VIAL IV (21:44)
[2020-02-18] MEDS: DONEPEZIL 5 MG TABLET 10 MG PO (21:45)
[2020-02-19] VITALS (8 sets, daily range): BP systolic 114–133; BP diastolic 52–69; PULSE 46–79; RESP 16–18; TEMP 36.3–36.7; O2SAT 94–98
--- NOTE | 2020-02-19 04:51 | PC.NURSE ---
EFFICIENCY MINER BLASTING called & notified me that pt's. HR was up to 150-130. Checked pt. she's resting comfortably in bed. Denies any CP & other discomfort rechecked her B/P 129/74 & HR. 123 per mid-ray monitor. Checked her telemetry her HR in the 70's. Will monitor.
[2020-02-19 05:37] LABS: Add Manual Diff / Slide Review NO; Basophils Absolute Auto 0 /uL (0-100); Basophils Percent Auto 0.2 % (0-2); Eosinophils Absolute Auto 100 /uL (0-450); Eosinophils Percent Auto 0.9 % (2-4); Hematocrit 25.6 % (36-46); Hemoglobin 8.7 g/dL (12.0-16.0); Lymphocytes Absolute Auto 1700 /uL (1100-4500); Lymphocytes Percent Auto 25.6 % (25-40); Mean Corpuscular HGB Conc 34.1 % (30-36); Mean Corpuscular Hemoglobin 29.7 PG (26-34); Monocytes Absolute Auto 700 /uL (0-900); Neutrophils Absolute Auto 4100 /uL (1500-7000); Neutrophils Percent Auto 62.3 % (50-75); Platelet Count 263 X10^3/uL (150-400); Red Blood Cell Count 2.94 X10^6/uL (4.0-5.2); Red Cell Distribution Width 15.2 % (11.6-14.8); White Blood Cell Count 6.5 X10^3/uL (4.5-11.0)
[2020-02-19 05:47] LABS: Alanine Aminotransferase 12 IU/L (<35); Albumin 3.1 g/dL (3.5-5.0); Albumin Globulin Ratio 1.2 (1.0-2.8); Alkaline Phosphatase 42 U/L (38-126); Aspartate Aminotransferase 24 IU/L (14-36); BUN Creatinine Ratio 18.1 (6-22); Bilirubin Total 0.3 mg/dL (0.2-1.3); Bilirubin Unconjugated 0.3 mg/dL (0.0-1.1); Blood Urea Nitrogen 13 mg/dL (7-17); Calcium 8.2 mg/dL (8.4-10.2); Carbon Dioxide 27 mmol/L (22-32); Chloride 106 mmol/L (98-107); Estimated Glomerular Filt Rate > 60.0 mL/min (>60); Globulin 2.6 g/dL (1.7-4.1); Glucose 86 mg/dL (80-110); HEMOLYSIS < 15 (0-50); Magnesium 1.8 mg/dL (1.6-2.3); Potassium 3.8 mmol/L (3.4-5.1); Sodium 135 mmol/L (137-145); Total Protein 5.7 g/dL (6.3-8.2)
[2020-02-19] MEDS: METOPROLOL ER 50 MG TABLET PO (05:50)
--- NOTE | 2020-02-19 05:54 | PC.NURSE ---
METAL FINISHER called again reported HR 136-[address] He notified ordered to administer 0900 dose of Metoprolol 50 mg. ER. Also reported to MD that 2100 dose on 02/18/20 was not given. Will report to day RN & monitor.
--- NOTE | 2020-02-19 08:21 | PM.DS.1 ---
History of Present Illness History of Present Illness Date Patient Seen: 02/19/20 Time Patient Seen: 08:22 Chief complaint: 2x hx fatigue/ loss of appetite/ gi symptoms Narrative: Mere Rivero is a 79-year-old female with past medical history of paroxysmal atrial fibrillation on apixaban, hypertension, hyperlipidemia, osteoporosis, and mild cognitive impairment who presented to the emergency room with dark stools. Patient and her report that she has not been feeling well for the past week or so, feeling very fatigued and sometimes lightheaded when standing. She denies any shortness of breath, or chest pain even with exertion but has not felt much energy at all to even walk. She denies any abdominal pain. She admits to having very dark stools for the past couple of days. Her does endorse some NSAID use for her chronic back pain which she takes every day, but he is unable to recall which 1 she was taking. She is on Eliquis for atrial fibrillation and her stopped giving this to her yesterday morning over concern for possible bleeding. She has never had bleeding in the past, and report a colonoscopy 14 months ago stating that it was unremarkable. In the emergency room, patient initially had borderline low blood pressures, but was not tachycardic and other vital signs were unremarkable. Her blood pressure improved after fluids. Initial labs were remarkable for hemoglobin of 6.1, hematocrit 17.9, platelet count of 354. INR was 1.5. Chemistry showed a sodium of 134, BUN of 30, creatinine of 1.14 up from previous value of 0.8 in 2017, and her glucose was 155. Alcohol level was negative, lipase was unremarkable at 248, and LFTs were also unremarkable. Patient was ordered for 2 units PRBCs in the emergency room. Home meds: Metoprolol 100 mg b.i.d., amlodipine 5 mg daily, losartan 100 mg daily, simvastatin 20 mg, potassium chloride 10 mEq, metoprolol 25 mg as needed for rapid heart rate, donepezil 10 mg, Eliquis 5 mg b.i.d., Ativan 0.5 mg b.i.d. as needed Discharge Providers Provider Date of admission: 02/17/20 16:57 Discharge Date: 02/19/20 Primary care physician: Ramsey Corbett MD Discharge provider: Memo Moncada DO Summary Hospital Course Discharge Diagnosis: Please see hospital course by problem list noted Hospital Course: Mere Rivero is a 79-year-old female with past medical history of paroxysmal atrial fibrillation on apixaban, hypertension, hyperlipidemia, osteoporosis, and mild cognitive impairment who presented to the emergency room with dark stools. She is admitted to the medicine service with a GI bleed secondary to gastritis and peptic ulcer disease as revealed on her endoscopy. Repeat hemoglobin was stable this morning, and patient will be discharged home with plan for general surgery follow-up for biopsy results. 1. GI bleed, acute, present on admission -secondary to peptic ulcer disease and gastritis. -patient with recent NSAID use as reported by the , and use of apixaban for paroxysmal atrial fibrillation. Stools were guaiac positive in the emergency room. - has held home apixaban, last dose was morning February 15 Will continue to hold. Surgery would not recommend resumption of her anticoagulation until she has a repeat CBC in a couple of weeks and biopsy results are known. -advanced diet as tolerated after endoscopy -Dr. Reyna of general surgery was consulted and performed endoscopy 02/18/20 which revealed gastritis and peptic ulcer disease. Recommended PPI b.i.d. for at least 2 weeks, and follow-up with general surgery as well in about 2 weeks to review pathology results. -given Protonix 80 mg x 1, and was treated with a PPI infusion until endoscopy, then transitioned to IV BID. Start oral PPI b.i.d. following discharge. -colonoscopy report was obtained and is placed in the patient's chart from a year and half ago, was essentially negative. 2. Acute blood loss anemia, secondary to above GI bleed, present on admission, resolved -presenting hemoglobin of 6.1, with symptoms of shortness of breath and dizziness. -2 unit PRBC transfusion in the emergency room with response to a hemoglobin of 8.7 from 6.1. Slightly decreased to 8.4 on repeat. Stable this morning at 8.7. -continue PPI as noted above. 3. Paroxysmal atrial fibrillation -resume home metoprolol at 50 mg BID from 100, HR in the 60s with normal BP on just metoprolol. -hold home eliquis as noted above. 4. Hypertension, chronic -continue to hold other home medications at this time as patient has only been restarted on metoprolol and has adequate blood pressure control. Can add therapy as needed as an outpatient. Follow-up with primary care provider. 5. Hyperlipidemia, chronic -continue simvastatin 20 mg once tolerating oral intake 6. Cognitive impairment, chronic -continue home donepezil 10 mg once tolerating oral intake, and Ativan 0.5 mg b.i.d. Dispo: Discharge home COVID-19 COVID-19 status: Negative Status at Discharge Cognitive/behavioral status at discharge: at baseline, confused Time Spent with Patient Time spent: Greater than 30 minutes Exam Vital Signs (past 8 hours): - 02/19/20 00:25 02/19/20 00:30 02/19/20 04:20 Temperature 97.9 F 98.0 F Pulse Rate 79 46 L Respiratory Rate 16 16 Blood Pressure 123/68 133/56 L Pulse Oximetry 97 97 98 02/19/20 05:00 02/19/20 05:50 02/19/20 06:27 Temperature Pulse Rate 69 67 Respiratory Rate Blood Pressure 114/52 L 120/52 L Pulse Oximetry 94 Oxygen Delivery Method Room Air Oxygen Flow Rate 0 Narrative Exam Narrative: GENERAL APPEARANCE: Elderly female, pale, but Well developed, well nourished, in no acute distress. SKIN: Inspection of the skin reveals no rashes, ulcerations or petechiae. HEENT: Normocephalic atraumatic, extraocular muscles are intact, oropharynx is clear and mucous membranes are moist, neck is supple without adenopathy NECK: Supple and symmetric. There was no thyroid enlargement, and no tenderness, or masses were felt. CHEST: Normal AP diameter and normal contour without any kyphoscoliosis. LUNGS: Auscultation of the lungs revealed no wheezes, rhonchi, or rales. CARDIOVASCULAR: There was a regular rate and rhythm without any murmurs, gallops, rubs. Peripheral pulses were 2+ and symmetric. ABDOMEN: Soft and nontender with normal bowel sounds. No ascites was noted. MUSCULOSKELETAL: There was no tenderness or effusions noted. Muscle strength and tone were normal. EXTREMITIES: No cyanosis, clubbing or edema. NEUROLOGIC: Alert. Normal affect. Strength is +5/5 in the Upper Extremities and Lower Extremities Bilaterally. Sensation to touch was normal. Objective Labs Result Diagrams: 02/19/20 05:14 02/19/20 05:14 Labs: Laboratory Results - last 24 hr 02/18/20 02/19/20 02/19/20 12:01 05:14 05:14 WBC 6.5 RBC 2.94 L Hgb 8.4 L 8.7 L Hct 24.3 L 25.6 L MCV 87.0 MCH 29.7 MCHC 34.1 RDW 15.2 H Plt Count 263 Neut % (Auto) 62.3 Lymph % (Auto) 25.6 [place] % (Auto) 11.0 Eos % (Auto) 0.9 L Baso % (Auto) 0.2 Neut # (Auto) 4100 Lymph # (Auto) 1700 [place] # (Auto) 700 Eos # (Auto) 100 Baso # (Auto) 0 Sodium 135 L Potassium 3.8 Chloride 106 Carbon Dioxide 27 BUN 13 Creatinine 0.72 Estimated GFR > 60.0 BUN/Creatinine Ratio 18.1 Glucose 86 Calcium 8.2 L Magnesium 1.8 Total Bilirubin 0.3 Conjugated Bilirubin 0.0 Unconjugated Bilirubin 0.3 AST 24 ALT 12 Alkaline Phosphatase 42 Total Protein 5.7 L Albumin 3.1 L Globulin 2.6 Albumin/Globulin Ratio 1.2 Discharge Plan Discharge Plan Patient Disposition: Home Discharge comment: You were admitted to the hospital with a GI bleed. You were found to have inflammation and some ulcers in your stomach. Please continue to take omeprazole or another PPI twice daily for at least two weeks. Please stop taking your blood thinner until you have repeat labs and a follow up visit with general surgery. Your blood pressures have been controlled on just metoprolol for now, at a reduced dose. As you recover your blood pressure may increase, please add in prior medications as needed with help from your primary care provider. Please follow up with Dr. Brown of surgery in a couple of weeks to go over your biopsy results. Do not take any more NSAID medications for your back pain. Discharge orders & Medications Prescriptions: New pantoprazole 40 mg tablet,delayed release (DR/EC) 40 mg PO BID 30 Days Qty: 60 RF: 0 metoprolol succinate 50 mg Tablet Extended Release 24 Hr 50 mg PO BID 30 Days Qty: 60 RF: 0 Continued lorazepam 0.5 mg tablet 0.5 mg PO BID PRN (Reason: Anxiety) RF: 0 donepezil 10 mg tablet 10 mg PO DAILY RF: 0 simvastatin 20 mg tablet 20 mg PO DAILY RF: 0 Discontinued amlodipine 5 mg tablet 5 mg PO DAILY RF: 0 Eliquis 5 mg tablet 5 mg PO BID RF: 0 metoprolol succinate 100 mg tablet extended release 24 hr 100 mg PO BID RF: 0 losartan 100 mg tablet 100 mg PO DAILY RF: 0 Follow up/Referrals: Ramsey Corbett MD [Primary Care Provider] - Shalini Brown MD [Physician] - 2 Weeks (F/u EGD with gastritis and peptic ulcers) Discharge Health Status Health Concerns: Gastritis Peptic ulcers Diet/Activity/Treatments Diet: Diet as Tolerated and Low-sodium Activity: As tolerated Visit Report/Discharge Packet Instructions: DI for Colonoscopy, DI for Gastric Ulcer, How to Prevent Falls, Gastrointestinal Bleeding, Pantoprazole, Metoprolol Stand Alone Forms: EGD Result: [facility] Surg Discharge Data Primary Care Provider: Ramsey Corbett V
[2020-02-19] MEDS: SODIUM CHLORIDE 0.9% FLUSH 10 ML IV (09:58)
[2020-02-19] MEDS: PANTOPRAZOLE 40 MG VIAL IV (09:58)
--- NOTE | 2020-02-19 13:14 | PC.NURSE ---
Day shift: Pt left unit at approx 1315 in WC with CHELO Gonzalez. He spouse is taking her home to [facility] via car. Paperwork is signed. Pt has all personal belongings. All questions answered. scrips sent to [facility] per Pt's request. Pt is happy to be going home today. Her shoes and bra located and she has them now.
--- NOTE | 2020-02-19 13:38 | CM.DPNOTE ---
DC Note: DC order in place for home w/spouse; placed call to spouse Edenilson Rivero, he is agreeable to transporting patient back home this afternoon and requests any new Rx be sent to [facility]. Edenilson has no further questions or concerns at this time and explains he can review DC instructions when he arrives at the hospital and patient will have close outpt f/u. According to MOLINA Corral, patient's spouse is a retired neurosurgeon. P: DC home today w/spouse via pov, close outpt f/u and monitoring HANK Isaac
== END 2020-02-19 13:16 | disposition home or self-care (01) | DRG 378 ==
LOC: ED 16:31 → AC 16:59
PROVIDERS: Surgery; Admitting Provider Internal Medicine; Emergency Provider Emergency Medicine; PCP Internal Medicine; Referring Provider Emergency Medicine; Visit Provider Internal Medicine
PROC: 0DJ08ZZ Inspection of Upper Intestinal Tract, Via Natural or Artificial Opening Endoscopic (ICD-10-PCS; CPT 43235; principal; 2020-02-18 17:00)
DX: K25.4 Chronic or unspecified gastric ulcer with hemorrhage (principal); D62 Acute posthemorrhagic anemia; K29.71 Gastritis, unspecified, with bleeding; I48.0 Paroxysmal atrial fibrillation; K20.9 Esophagitis, unspecified; I10 Essential (primary) hypertension; E78.5 Hyperlipidemia, unspecified; G31.84 Mild cognitive impairment of uncertain or unknown etiology; Z87.891 Personal history of nicotine dependence; Z11.59 Encounter for screening for other viral diseases
CPT/HCPCS: 36415; 36430; 80048; 80053; 80076; 80320; 82962; 83690; 83735; 85014; 85018; 85025; 85610; 85730; 86850; 86900; 86901; 87635; 93005; 96365; 99285; 99291; P9016; C9113; J0330; J2060; J2405; J2704; J3010

== ENCOUNTER → 2020-02-26 16:49 | Outpatient (CLI) | payer MEDICARE, SELFPAY ==
[2020-02-24 11:34] VITALS: BMI 18.6
[2020-02-26 17:56] LABS: Add Manual Diff / Slide Review NO; Basophils Absolute Auto 0 /uL (0-100); Basophils Percent Auto 1.1 % (0-2); Eosinophils Absolute Auto 0 /uL (0-450); Eosinophils Percent Auto 1.2 % (2-4); Hematocrit 26.5 % (36-46); Hemoglobin 8.7 g/dL (12.0-16.0); Lymphocytes Absolute Auto 1300 /uL (1100-4500); Lymphocytes Percent Auto 32.3 % (25-40); Mean Corpuscular Hemoglobin 28.8 PG (26-34); Mean Corpuscular Volume 87.2 fL (80-100); Monocytes Absolute Auto 500 /uL (0-900); Monocytes Percent Auto 12.4 % (3-14); Neutrophils Absolute Auto 2100 /uL (1500-7000); Platelet Count 309 X10^3/uL (150-400); Red Blood Cell Count 3.04 X10^6/uL (4.0-5.2); Red Cell Distribution Width 15.6 % (11.6-14.8); White Blood Cell Count 3.9 X10^3/uL (4.5-11.0)
== END ==
PROVIDERS: PCP Internal Medicine; Referring Provider Internal Medicine; Visit Provider Internal Medicine
DX: D64.9 Anemia, unspecified (principal)
CPT/HCPCS: 36415; 85025

== ENCOUNTER → 2020-05-13 14:25 | Outpatient (CLI) | payer MEDICARE, SELFPAY ==
[2020-02-24 11:34] VITALS: BMI 18.6
[2020-05-13 16:10] LABS: Add Manual Diff / Slide Review NO; Basophils Absolute Auto 0 /uL (0-100); Basophils Percent Auto 0.9 % (0-2); Eosinophils Absolute Auto 0 /uL (0-450); Eosinophils Percent Auto 0.5 % (2-4); Hematocrit 33.5 % (36-46); Hemoglobin 10.6 g/dL (12.0-16.0); Lymphocytes Absolute Auto 1300 /uL (1100-4500); Lymphocytes Percent Auto 25.9 % (25-40); Mean Corpuscular HGB Conc 31.5 % (30-36); Mean Corpuscular Hemoglobin 22.5 PG (26-34); Mean Corpuscular Volume 71.6 fL (80-100); Monocytes Absolute Auto 500 /uL (0-900); Neutrophils Absolute Auto 3200 /uL (1500-7000); Neutrophils Percent Auto 63.7 % (50-75); Platelet Count 365 X10^3/uL (150-400); Red Blood Cell Count 4.69 X10^6/uL (4.0-5.2)
[2020-05-13 16:18] LABS: Red Cell Distribution Width 19.9 % (11.6-14.8)
[2020-05-13 16:34] LABS: HEMOLYSIS < 15 (0-50); Iron 31 ug/dL (37-170)
[2020-05-13 16:38] LABS: BUN Creatinine Ratio 17.9 (6-22); Blood Urea Nitrogen 14 mg/dL (7-17); Calcium 9.9 mg/dL (8.4-10.2); Carbon Dioxide 28 mmol/L (22-32); Chloride 100 mmol/L (98-107); Estimated Glomerular Filt Rate > 60.0 mL/min (>60); Glucose 65 mg/dL (80-110); HEMOLYSIS < 15 (0-50); Potassium 3.9 mmol/L (3.4-5.1); Sodium 137 mmol/L (137-145)
[2020-05-13 16:45] LABS: Percent Iron Saturation 7 % (15-50); Total Iron Binding Capacity 421 ug/dL (265-497); Transferrin 359 mg/dL (206-381)
[2020-05-13 17:12] LABS: Ferritin 8 ng/mL (11-264)
== END ==
PROVIDERS: PCP Internal Medicine; Referring Provider Internal Medicine; Visit Provider Internal Medicine
DX: D62 Acute posthemorrhagic anemia (principal); I48.91 Unspecified atrial fibrillation
CPT/HCPCS: 36415; 80048; 82728; 83540; 83550; 85025

== ENCOUNTER → 2020-07-11 19:48 | Outpatient (ROUT) | payer MEDICARE, SELFPAY ==
[2020-02-24 11:34] VITALS: BMI 18.6
[2020-07-11 20:15] LABS: Add Manual Diff / Slide Review NO; Basophils Absolute Auto 0 /uL (0-100); Basophils Percent Auto 0.8 % (0-2); Eosinophils Absolute Auto 0 /uL (0-450); Eosinophils Percent Auto 0.8 % (2-4); Hematocrit 34.7 % (36-46); Hemoglobin 10.7 g/dL (12.0-16.0); Lymphocytes Absolute Auto 1400 /uL (1100-4500); Lymphocytes Percent Auto 27.5 % (25-40); Mean Corpuscular HGB Conc 30.8 % (30-36); Mean Corpuscular Hemoglobin 22.9 PG (26-34); Mean Corpuscular Volume 74.5 fL (80-100); Monocytes Absolute Auto 500 /uL (0-900); Monocytes Percent Auto 9.2 % (3-14); Neutrophils Absolute Auto 3100 /uL (1500-7000); Neutrophils Percent Auto 61.7 % (50-75); Platelet Count 361 X10^3/uL (150-400); Red Blood Cell Count 4.66 X10^6/uL (4.0-5.2); Red Cell Distribution Width 21.2 % (11.6-14.8)
[2020-07-11 20:27] LABS: HEMOLYSIS < 15 (0-50); Iron 34 ug/dL (37-170)
[2020-07-11 20:29] LABS: Alanine Aminotransferase 14 IU/L (<35); Albumin 4.1 g/dL (3.5-5.0); Albumin Globulin Ratio 1.3 (1.0-2.8); Alkaline Phosphatase 77 U/L (38-126); Aspartate Aminotransferase 26 IU/L (14-36); BUN Creatinine Ratio 24.7 (6-22); Bilirubin Total 0.3 mg/dL (0.2-1.3); Blood Urea Nitrogen 20 mg/dL (7-17); Calcium 10.1 mg/dL (8.4-10.2); Carbon Dioxide 31 mmol/L (22-32); Chloride 99 mmol/L (98-107); Cholesterol 151 mg/dL (140-199); Estimated Glomerular Filt Rate > 60.0 mL/min (>60); Globulin 3.1 g/dL (1.7-4.1); Glucose 109 mg/dL (80-110); HDL Cholesterol 79 mg/dL (40-60); HEMOLYSIS < 15 (0-50); LDL Cholesterol Calculated 42 mg/dL (<100); Potassium 4.1 mmol/L (3.4-5.1); Sodium 136 mmol/L (137-145); Total Protein 7.2 g/dL (6.3-8.2); Triglycerides 150 mg/dL (35-150)
[2020-07-11 20:38] LABS: Percent Iron Saturation 8 % (15-50); Total Iron Binding Capacity 417 ug/dL (265-497); Transferrin 341 mg/dL (206-381)
[2020-07-11 20:57] LABS: Anisocytosis 2+; Hypochromasia 2+; Microcytosis 2+; Ovalocytes 2+; Poikilocytosis 2+
[2020-07-11 20:59] LABS: TSH w/ Reflex to FT4 1.66 uIU/mL (0.47-4.68)
[2020-07-11 21:02] LABS: Ferritin 8 ng/mL (11-264)
== END ==
PROVIDERS: PCP Internal Medicine; Visit Provider Internal Medicine
DX: R63.4 Abnormal weight loss (principal); E78.2 Mixed hyperlipidemia
CPT/HCPCS: 80053; 80061; 82728; 83540; 83550; 84443; 85025

== ENCOUNTER 2020-10-03 15:30 | Emergency (ER) | payer MEDICARE, SELFPAY ==
[2020-02-24 11:34] VITALS: BMI 18.6
[2020-10-03] VITALS (21 sets, daily range): BP systolic 151–199; BP diastolic 71–85; PULSE 8–80; RESP 10–48; O2SAT 96–100
--- NOTE | 2020-10-03 15:38 | DI.CT.S_ITS ---
PROCEDURE: CT ANGIO HEAD AND NECK INDICATIONS: on eliquis, pupils assymetric TECHNIQUE: After the administration of intravenous contrast, 1 mm thick sections acquired from the aortic arch through the [place] of [place]. Post-contrast 4.5 mm thick sections then re-acquired from the foramen magnum to the vertex. 3-dimensional promnuf-tghyiylpy-sfrtlomqpv (MIP) and/or volume rendering reformats were acquired of the central intracranial vasculature and neck separately. . 3. Change FINDINGS: Image quality: Patient motion artifact somewhat obscures detail.. BRAIN: CSF spaces: Ventricles are normal in size and shape. Basal cisterns are patent. No extra-axial fluid collections. Brain: No midline shift. No intracranial bleeds or masses. Mccarty-white matter interface appears intact. Age-related volume loss and moderate small vessel ischemic change. Skull and face: Calvarium and facial bones appear intact, without suspicious lesions. Orbits appear normal. Sinuses: Sinuses and mastoids are clear. HEAD CT ANGIOGRAPHY: Anterior circulation: Intracranial internal carotid arteries are normal in size and flow. The flow within the paired anterior cerebral arteries is normal and symmetric. The flow within the middle cerebral arteries is normal and symmetric. The anterior communicating artery is seen. No aneurysms are seen. Posterior circulation: The right vertebral artery is diffusely diminutive. The left vertebral artery is dominant. They join to form a widely patent basilar artery. join to form a normal appearing basilar artery. Acute occlusion of the proximal left posterior cerebral artery, presumed secondary to an embolus. No aneurysms are seen. NECK CT ANGIOGRAPHY: Carotid system: The great vessels demonstrate a conventional anatomy as they arise from the aortic arch. The origins of the common carotid arteries appear patent. The common carotid arteries demonstrate normal caliber and courses. Dense calcification in the region of the left carotid bifurcation and proximal left internal carotid artery. Approximately 50% calcified proximal left internal carotid artery stenosis. Right carotid bifurcation and internal carotid artery are widely patent. Posterior circulation: The right vertebral artery is diffusely diminutive. The left vertebral artery is dominant. They join to form a normal appearing basilar artery. Soft tissues: Visualized neck soft tissues demonstrate no suspicious abnormalities. Bones: No suspicious bony lesions. Visualized cervical spine appears normally aligned. IMPRESSION: 1. Patient motion artifact obscures detail somewhat. Subtle acute infarcts are not excluded. 2. Age-related volume loss and moderate small vessel ischemic change. 3. Findings consistent with acute embolic occlusion of the proximal left posterior cerebral artery. 4. Moderate, approximately 50% calcified stenosis of the proximal left internal carotid artery. Comment: Findings were discussed with Dr. Young at the time of study dictation on 10/03/20 at 16:12 hours. Any quantitative measurements of stenosis were performed using NASCET criteria. Dictated by: Chad Dean M.D. on 10/03/2020 at 16:02 Approved by: Chad Dean M.D. on 10/03/2020 at 16:16
--- NOTE | 2020-10-03 15:38 | DI.CT.S_ITS ---
PROCEDURE: CT STROKE INDICATIONS: LOC, confusion, pupils assymetric, on eliquisd TECHNIQUE: Noncontrast 4.5 mm thick angled axial sections acquired from the foramen magnum to the vertex, with coronal reformats. For radiation dose reduction, the following was used: automated exposure control, adjustment of mA and/or kV according to patient size. COMPARISON: None. FINDINGS: Image quality: Excellent. CSF spaces: Basal cisterns are patent. No extra-axial fluid collections. The ventricles are symmetric in size and shape. Brain: No acute intracranial hemorrhage or mass effect. A small low-density focus is seen in the right thalamus that is most likely a subacute to chronic small lacunar infarct. There is cerebral volume loss for age, with resultant ventricular and sulcal prominence. There are periventricular and deep white matter chronic small vessel ischemic changes. There is intracranial internal carotid artery atherosclerosis. Skull and face: Calvarium and visualized facial bones appear intact, without suspicious lesions. Sinuses: Visualized sinuses and mastoids are clear. IMPRESSION: 1. No acute intracranial hemorrhage. 2. Small hypodense focus in the right thalamus is likely a subacute to chronic lacunar infarct. 3. Chronic microvascular ischemic changes and age related cerebral atrophy. Findings were discussed with the referring physician, Dr. Young, by telephone on 10/03/2020 at 4:02 PM. This study fulfills neurological imaging criteria for inclusion or exclusion of acute stroke therapies based on available published neurological guidelines. Dictated by: Cesar Haro M.D. on 10/03/2020 at 15:56 Approved by: Cesar Haro M.D. on 10/03/2020 at 16:03
--- NOTE | 2020-10-03 15:40 | ED.AMS ---
HPI - Altered Mental Status General Chief Complaint: Unresponsive Stated Complaint: Unresponsive Time Seen by Provider: 10/03/20 15:37 Source: patient and EMS Mode of arrival: EMS Limitations: altered mental status History of Present Illness HPI narrative: This is a 79-year-old female who comes emergency department with altered mental status. Patient was last seen normal 15 minutes prior by her who came into the room and found her unresponsive. When EMS arrived they states she had agonal respirations. Patient had not been having any symptoms that family communicated to EMS. She is on Eliquis per EMS. After arrival when patients received COVID swab she became responsive. She can tell me her name, she has difficulty telling me the year. She can move all her extremities but does seem to have some difference or weakness on the left compared to right. Per EMS patient is full code. Patient per EMS was otherwise normal today, she does have some dementia but normally ambulates and talks without issue. Related Data Home Medications Medication Instructions Recorded Confirmed donepezil 10 mg PO DAILY 02/19/20 03/17/20 lorazepam 0.5 mg PO BID PRN 02/19/20 03/17/20 simvastatin 20 mg PO DAILY 02/19/20 03/17/20 Allergies Allergy/AdvReac Type Severity Reaction Status Date / Time No Known Drug Allergies Allergy Verified 03/17/20 14:01 Review of Systems Review of Systems ROS Unobtainable: Unobtainable due to mental status/LOC Patient History Medical History Atrial fibrillation Central retinal vein occlusion of right eye Diverticulosis Hypercholesterolemia Hypertension Kyphosis Mild cognitive impairment Osteoporosis Scoliosis Social History marital status: household members: spouse lives independently: Yes Smoking Status: Former smoker alcohol intake: current Smoking Status: Former smoker alcohol intake frequency: 0-2 drinks per day Alcohol type: hard liquor Substance Use Type: does not use Exam Narrative Exam Narrative: GEN: thin, elderly female, initially unresponsive but alert after COVID nasal swab, patient appears to be in moderate distress. Patient does follow basic commands but has difficulty with complex commands. She can tell me her name but has difficulty giving other history or telling me the year. HEENT: Atraumatic, pupils are round reactive to light, patient has asymmetry in size with the right being 3-4 mm in the left 7mm, extraocular movements are intact, nares are clear, TMs are clear with no fluid, there is no conjunctival pallor. Throat is clear without any exudates, erythema, tonsillar enlargement or uvular deviation, mild facial droop. HEART: Regular rate and rhythm without murmur, clicks, rubs. No carotid bruits, pulses are equal in upper and lower extremities LUNGS:Lungs clear to auscultation, no wheezes, rales, crackles, chest moves symmetrically ABD:bowel sounds normal, soft, non-tender, no guarding, rebound, rigidity, no masses noted, no hepatosplenomegaly MSCL: Non-tender, no muscle atrophy, patient is able to lift all 4 extremities but does seem to be slightly weaker on the left side. NEURO:CN 2-12 intact, sensation appears intact. Initial Vital Signs Initial Vital Signs: Vital Signs Pulse Rate 80 10/03/20 15:30 Respiratory Rate 10 L 10/03/20 15:30 Pulse Oximetry 99 10/03/20 15:30 Scores GCS Lovely coma scale eye opening: Spontaneous Lovely coma scale verbal response: Confused Deposit coma scale motor response: Obey commands Deposit coma scale total score: 14 NIH Stroke Scale Level of Conciousness: Not alert, but arousable by minor stim to obey, answer or respond Ask month/age: Answers neither question correctly, aphasic, stuporous, coma Open/close eyes, close hand: Performs one task correctly Best gaze horizontal: Normal Visual hampton: No visual loss (unable to assess) Facial palsy: Minor paralysis, flattened nasolabial fold, asymmetry on smiling Left arm drift: Drifts down, not to bed Right arm drift: No drift for full 10 sec Left leg drift: No drift for full 5 sec Right leg drift: No drift for full 5 sec Limb ataxia: Amputation, joint fusion (Unable to assess. Patient not following command.) Sensory on face/arms/legs: Normal, no sensory loss Best language: Mild to moderate, slurs some words Dysarthria: Mild to mod,some slurring Extinction or inattention: No abnormality Total NIH Stroke scale score: 8 Course Orders Ordered: ED Orders 10/03/20 15:32 COVID19 Stat 10/03/20 15:[address] angio head and neck Stat 10/03/20 15:41 Complete Blood Count AUTO DIFF Stat Comprehensive Metabolic Panel Stat Partial Thromboplastin Time Stat Prothrombin Time INR Stat Troponin & CK Cardiac Panel Stat 10/03/20 15:55 ABG [Arterial Blood Gas] Stat 10/03/20 16:31 Urine Drug Screen, Rapid Stat Sodium Chloride (Normal Saline 0.9%) 1,000 mls @ 150 mls/hr IV CONT BRINDA Last Infusion: 10/03/20 19:40 Dose: 0 mls/hr Documented by: Admin: 10/03/20 16:01 Dose: 150 mls/hr Documented by: GUILLERMO Discontinued Medications Alteplase, Recombinant (Alteplase 100 Mg Vial) 5.3 mg 0.09 mg/kg (5.3 mg) IV NOW ONE Stop: 10/03/20 17:52 Last Admin: 10/03/20 18:05 Dose: 5.3 mg Documented by: GUILLERMO Alteplase, Recombinant (Alteplase 100 Mg Vial) 53.2 mg IV NOW ONE Stop: 10/03/20 18:01 Last Admin: 10/03/20 18:04 Dose: 53.2 mg Documented by: GUILLERMO Labetalol HCl (Labetalol 20 Mg/4 Ml Syringe) 10 mg IV NOW ONE Stop: 10/03/20 17:20 Last Admin: 10/03/20 18:13 Dose: Not Given Documented by: GUILLERMO Reevaluation(s) Reevaluation #1: Pupils are now 2 bilaterally and equal. Patient is responsive to verbal stimuli but confused. Time: 16:10 Consultations Consultation #1: Dr. Valentine from [facility] Neurology case was discussed, including imaging findings. Patient's current examination and history. There was some delay with Dr. Valentine having access to images. Dr. Valentine was recontacted and case discussed again. Patient was originally not believed to be a tPA candidate as EMS had related history that she was on Eliquis but was considered possible Code IR candidate. Patient's states that that was actually stopped in January secondary to gastrointestinal bleed. This was all discussed while evaluating the patient via tele stroke video. Risks versus benefits were discussed with the patient and her who is the current decision maker and he elects to go ahead with tPA and is aware that she is high risk for potentially bleeding to . Patient Consultation #2: Spoke with Dr. Vela Treat with neurology, who accepts for transfer. Patient has had some improvement after tpa and is much more alert and verbal on exam. Vital Signs Vital signs: Vital Signs - 8 hr 10/03/20 15:30 10/03/20 15:56 10/03/20 16:00 Pulse Rate 80 73 68 Respiratory Rate 10 L 34 H 32 H Blood Pressure 164/73 H 168/72 H Pulse Oximetry 99 97 98 10/03/20 16:14 10/03/20 16:15 10/03/20 16:30 Pulse Rate 8 L 55 L 70 Respiratory Rate 16 33 H 28 H Blood Pressure 169/72 H 177/84 H Pulse Oximetry 100 98 10/03/20 16:45 10/03/20 17:00 10/03/20 17:15 Pulse Rate 60 55 L 64 Respiratory Rate 43 H 45 H 48 H Blood Pressure 183/84 H 172/74 H 199/84 H Pulse Oximetry 98 99 98 10/03/20 17:30 10/03/20 17:45 10/03/20 18:00 Pulse Rate 51 L 53 L 63 Respiratory Rate 35 H 34 H 18 Blood Pressure 177/81 H 160/74 H 151/71 H Pulse Oximetry 99 98 99 10/03/20 18:14 10/03/20 18:15 10/03/20 18:30 Pulse Rate 59 L 59 L 70 Respiratory Rate 24 16 16 Blood Pressure 161/75 H 170/74 H Pulse Oximetry 99 99 98 10/03/20 18:44 10/03/20 18:45 10/03/20 19:00 Pulse Rate 62 61 60 Respiratory Rate 16 20 18 Blood Pressure 174/83 H Pulse Oximetry 99 100 96 10/03/20 19:01 10/03/20 19:15 10/03/20 19:17 Pulse Rate 64 60 60 Respiratory Rate 22 20 18 Blood Pressure 154/85 H 164/75 H 164/75 H Pulse Oximetry 100 99 100 MDM - Altered Mental Status Lab Data Attestation: I reviewed the patient's lab results. Result diagrams: 10/03/20 15:41 10/03/20 15:41 Labs: Lab Results 10/03/20 10/03/20 10/03/20 Range/Units 15:32 15:41 15:41 WBC 4.4 L (4.5-11.0) X10^3/uL RBC 4.64 (4.0-5.2) X10^6/uL Hgb 13.3 (12.0-16.0) g/dL Hct 40.5 (36-46) % MCV 87.2 (80-100) fL MCH 28.8 (26-34) PG MCHC 33.0 (30-36) % RDW 22.5 H (11.6-14.8) % Plt Count 199 (150-400) X10^3/uL Neut % (Auto) 67.7 (50-75) % Lymph % (Auto) 20.0 L (25-40) % Millard % (Auto) 11.1 (3-14) % Eos % (Auto) 0.5 L (2-4) % Baso % (Auto) 0.7 (0-2) % Neut # (Auto) 3000 (1082-6131) /uL Lymph # (Auto) 900 L (0614-1076) /uL Millard # (Auto) 500 (0-900) /uL Eos # (Auto) 0 (0-450) /uL Baso # (Auto) 0 (0-100) /uL RBC Morphology Not Reportable Poikilocytosis 1+ H Ovalocytes 1+ H PT (10.1-12.7) SECONDS INR (0.9-1.3) APTT (26.4-36.2) SECONDS ABG pH (7.35-7.45) ABG pCO2 (35-45) mmHg ABG pO2 (80-100) mmHg ABG HCO3 (22-26) mmol/L ABG Total CO2 (21-31) mmol/L ABG O2 Saturation (95-100) % ABG Base Excess (-2-2) mmol/L FiO2 Sodium 135 L (137-145) mmol/L Potassium 3.8 (3.4-5.1) mmol/L Chloride 101 (98-107) mmol/L Carbon Dioxide 31 (22-32) mmol/L BUN 13 (7-17) mg/dL Creatinine 0.73 (0.52-1.04) mg/dL Estimated GFR > 60.0 (>60) mL/min BUN/Creatinine Ratio 17.8 (6-22) Glucose 85 (80-110) mg/dL Calcium 9.5 (8.4-10.2) mg/dL Total Bilirubin 0.3 (0.2-1.3) mg/dL AST 32 (14-36) IU/L ALT 22 (<35) IU/L Alkaline Phosphatase 55 (38-126) U/L Total Creatine Kinase 64 (30-135) U/L CK-MB (CK-2) TNP CK-MB (CK-2) Rel Index TNP Troponin I 0.036 H (0.01-0.034) ng/mL Total Protein 7.0 (6.3-8.2) g/dL Albumin 3.9 (3.5-5.0) g/dL Globulin 3.1 (1.7-4.1) g/dL Albumin/Globulin Ratio 1.3 (1.0-2.8) U Opiates 300ng/mL cut (Negative) Ur Oxycodone Screen (Negative) Urine Methadone Screen (Negative) Ur Barbiturates Screen (Negative) U Tricyclic Antidepress (Negative) Ur Phencyclidine Scrn (Negative) Ur Amphetamines Screen (Negative) U Methamphetamines Scrn (Negative) Ur MDMA Scrn (Ecstasy) (Negative) U Benzodiazepines Scrn (Negative) Urine Cocaine Screen (Negative) U Marijuana (THC) Screen (Negative) SARS-CoV-2 (PCR) Negative (Negative) 10/03/20 10/03/20 10/03/20 Range/Units 15:41 15:41 15:55 WBC (4.5-11.0) X10^3/uL RBC (4.0-5.2) X10^6/uL Hgb (12.0-16.0) g/dL Hct (36-46) % MCV (80-100) fL MCH (26-34) PG MCHC (30-36) % RDW (11.6-14.8) % Plt Count (150-400) X10^3/uL Neut % (Auto) (50-75) % Lymph % (Auto) (25-40) % Millard % (Auto) (3-14) % Eos % (Auto) (2-4) % Baso % (Auto) (0-2) % Neut # (Auto) (8650-4637) /uL Lymph # (Auto) (1122-5297) /uL Millard # (Auto) (0-900) /uL Eos # (Auto) (0-450) /uL Baso # (Auto) (0-100) /uL RBC Morphology Poikilocytosis Ovalocytes PT 12.1 (10.1-12.7) SECONDS INR 1.0 (0.9-1.3) APTT 30 D (26.4-36.2) SECONDS ABG pH 7.47 H (7.35-7.45) ABG pCO2 36.6 (35-45) mmHg ABG pO2 111 H (80-100) mmHg ABG HCO3 27 H (22-26) mmol/L ABG Total CO2 28 (21-31) mmol/L ABG O2 Saturation 99 (95-100) % ABG Base Excess 3.0 H (-2-2) mmol/L FiO2 28 Sodium Cancelled (137-145) mmol/L Potassium Cancelled (3.4-5.1) mmol/L Chloride Cancelled (98-107) mmol/L Carbon Dioxide Cancelled (22-32) mmol/L BUN Cancelled (7-17) mg/dL Creatinine Cancelled (0.52-1.04) mg/dL Estimated GFR Cancelled (>60) mL/min BUN/Creatinine Ratio Cancelled (6-22) Glucose Cancelled (80-110) mg/dL Calcium Cancelled (8.4-10.2) mg/dL Total Bilirubin Cancelled (0.2-1.3) mg/dL AST Cancelled (14-36) IU/L ALT Cancelled (<35) IU/L Alkaline Phosphatase Cancelled (38-126) U/L Total Creatine Kinase Cancelled (30-135) U/L CK-MB (CK-2) Cancelled CK-MB (CK-2) Rel Index Cancelled Troponin I Cancelled (0.01-0.034) ng/mL Total Protein Cancelled (6.3-8.2) g/dL Albumin Cancelled (3.5-5.0) g/dL Globulin Cancelled (1.7-4.1) g/dL Albumin/Globulin Ratio Cancelled (1.0-2.8) U Opiates 300ng/mL cut (Negative) Ur Oxycodone Screen (Negative) Urine Methadone Screen (Negative) Ur Barbiturates Screen (Negative) U Tricyclic Antidepress (Negative) Ur Phencyclidine Scrn (Negative) Ur Amphetamines Screen (Negative) U Methamphetamines Scrn (Negative) Ur MDMA Scrn (Ecstasy) (Negative) U Benzodiazepines Scrn (Negative) Urine Cocaine Screen (Negative) U Marijuana (THC) Screen (Negative) SARS-CoV-2 (PCR) (Negative) 10/03/20 Range/Units 16:31 WBC (4.5-11.0) X10^3/uL RBC (4.0-5.2) X10^6/uL Hgb (12.0-16.0) g/dL Hct (36-46) % MCV (80-100) fL MCH (26-34) PG MCHC (30-36) % RDW (11.6-14.8) % Plt Count (150-400) X10^3/uL Neut % (Auto) (50-75) % Lymph % (Auto) (25-40) % Millard % (Auto) (3-14) % Eos % (Auto) (2-4) % Baso % (Auto) (0-2) % Neut # (Auto) (9892-9944) /uL Lymph # (Auto) (7800-0448) /uL Millard # (Auto) (0-900) /uL Eos # (Auto) (0-450) /uL Baso # (Auto) (0-100) /uL RBC Morphology Poikilocytosis Ovalocytes PT (10.1-12.7) SECONDS INR (0.9-1.3) APTT (26.4-36.2) SECONDS ABG pH (7.35-7.45) ABG pCO2 (35-45) mmHg ABG pO2 (80-100) mmHg ABG HCO3 (22-26) mmol/L ABG Total CO2 (21-31) mmol/L ABG O2 Saturation (95-100) % ABG Base Excess (-2-2) mmol/L FiO2 Sodium (137-145) mmol/L Potassium (3.4-5.1) mmol/L Chloride (98-107) mmol/L Carbon Dioxide (22-32) mmol/L BUN (7-17) mg/dL Creatinine (0.52-1.04) mg/dL Estimated GFR (>60) mL/min BUN/Creatinine Ratio (6-22) Glucose (80-110) mg/dL Calcium (8.4-10.2) mg/dL Total Bilirubin (0.2-1.3) mg/dL AST (14-36) IU/L ALT (<35) IU/L Alkaline Phosphatase (38-126) U/L Total Creatine Kinase (30-135) U/L CK-MB (CK-2) CK-MB (CK-2) Rel Index Troponin I (0.01-0.034) ng/mL Total Protein (6.3-8.2) g/dL Albumin (3.5-5.0) g/dL Globulin (1.7-4.1) g/dL Albumin/Globulin Ratio (1.0-2.8) U Opiates 300ng/mL cut Negative (Negative) Ur Oxycodone Screen Negative (Negative) Urine Methadone Screen Negative (Negative) Ur Barbiturates Screen Negative (Negative) U Tricyclic Antidepress Negative (Negative) Ur Phencyclidine Scrn Negative (Negative) Ur Amphetamines Screen Negative (Negative) U Methamphetamines Scrn Negative (Negative) Ur MDMA Scrn (Ecstasy) Negative (Negative) U Benzodiazepines Scrn Negative (Negative) Urine Cocaine Screen Negative (Negative) U Marijuana (THC) Screen Negative (Negative) SARS-CoV-2 (PCR) (Negative) Point of Care Testing Glucose POC 125 Urine Dip Bedside Urine Glucose Negative Bedside Urine Bilirubin - Negative Bedside Urine Ketone - Negative Urine Specific [place] 1.010 Bedside Urine Occult Blood - Negative Bedside Urine pH 7.5 Bedside Urine Protein - Negative Bedside Urine Urobilinogen - Negative Bedside Urine Nitrite - Negative Bedside Urine Leukocytes - Negative Esterase Imaging Data CT scan - head: Radiologist's Impression: Mere Rivero 79 F [address] [id number] Scan ReportSigned Patient: Mere Rivero EMR#: [id number]: [id number]:[id number]/Sex: 79 / FDate of Service: 10/03/20Loc: EDAccession Number: [id number] Procedure: CT Stroke Ordering Provider: Padmini Young D.O. PROCEDURE: CT STROKE INDICATIONS: LOC, confusion, pupils assymetric, on eliquisd TECHNIQUE: Noncontrast 4.5 mm thick angled axial sections acquired from the foramen magnum to the vertex, with coronal reformats. For radiation dose reduction, the following was used: automated exposure control, adjustment of mA and/or kV according to patient size. COMPARISON: None. FINDINGS: Image quality: Excellent. CSF spaces: Basal cisterns are patent. No extra-axial fluid collections. The ventricles are symmetric in size and shape. Brain: No acute intracranial hemorrhage or mass effect. A small low-density focus is seen in the right thalamus that is most likely a subacute to chronic small lacunar infarct. There is cerebral volume loss for age, with resultant ventricular and sulcal prominence. There are periventricular and deep white matter chronic small vessel ischemic changes. There is intracranial internal carotid artery atherosclerosis. Skull and face: Calvarium and visualized facial bones appear intact, without suspicious lesions. Sinuses: Visualized sinuses and mastoids are clear. IMPRESSION: 1. No acute intracranial hemorrhage. 2. Small hypodense focus in the right thalamus is likely a subacute to chronic lacunar infarct. 3. Chronic microvascular ischemic changes and age related cerebral atrophy. Findings were discussed with the referring physician, Dr. Young, by telephone on 10/03/2020 at 4:02 PM. This study fulfills neurological imaging criteria for inclusion or exclusion of acute stroke therapies based on available published neurological guidelines. Dictated by: Cesar Haro M.D. on 10/03/2020 at 15:56 Approved by: Cesar Haro M.D. on 10/03/2020 at 16:03 CTA - brain/neck: Radiologist's Impression: Chart Viewer Diagnostics DATE TYPE STATUS REF RANGE/AUTHOR Hx Today 15:38 Chad Dean Today 15:38 Cesar Haro 02/17/20 16:57 02/17/20 16:57 Rhona Riveroith Carlos A 79, F1940 REG ER, Main ED R01 59kg Unresponsive Search Chart No Data to Display ONSET Today 16:14 Rhona Riveroith Carlos A 79 F [address] [id number] Scan ReportSigned Patient: Mere Rivero EMR#: [id number]: 1940cct:[id number]/Sex: 79 / FDate of Service: 10/03/20Loc: EDAccession Number: [id number] Procedure: CT angio head and neck Ordering Provider: Padmini Young D.O. PROCEDURE: CT ANGIO HEAD AND NECK INDICATIONS: on eliquis, pupils assymetric TECHNIQUE: After the administration of intravenous contrast, 1 mm thick sections acquired from the aortic arch through the [place]. Post-contrast 4.5 mm thick sections then re-acquired from the foramen magnum to the vertex. 3-dimensional wyayich-pzdjggedw-bleeliqoig (MIP) and/or volume rendering reformats were acquired of the central intracranial vasculature and neck separately. . 3. Change FINDINGS: Image quality: Patient motion artifact somewhat obscures detail.. BRAIN: CSF spaces: Ventricles are normal in size and shape. Basal cisterns are patent. No extra-axial fluid collections. Brain: No midline shift. No intracranial bleeds or masses. Mccarty-white matter interface appears intact. Age-related volume loss and moderate small vessel ischemic change. Skull and face: Calvarium and facial bones appear intact, without suspicious lesions. Orbits appear normal. Sinuses: Sinuses and mastoids are clear. HEAD CT ANGIOGRAPHY: Anterior circulation: Intracranial internal carotid arteries are normal in size and flow. The flow within the paired anterior cerebral arteries is normal and symmetric. The flow within the middle cerebral arteries is normal and symmetric. The anterior communicating artery is seen. No aneurysms are seen. Posterior circulation: The right vertebral artery is diffusely diminutive. The left vertebral artery is dominant. They join to form a widely patent basilar artery. join to form a normal appearing basilar artery. Acute occlusion of the proximal left posterior cerebral artery, presumed secondary to an embolus. No aneurysms are seen. NECK CT ANGIOGRAPHY: Carotid system: The great vessels demonstrate a conventional anatomy as they arise from the aortic arch. The origins of the common carotid arteries appear patent. The common carotid arteries demonstrate normal caliber and courses. Dense calcification in the region of the left carotid bifurcation and proximal left internal carotid artery. Approximately 50% calcified proximal left internal carotid artery stenosis. Right carotid bifurcation and internal carotid artery are widely patent. Posterior circulation: The right vertebral artery is diffusely diminutive. The left vertebral artery is dominant. They join to form a normal appearing basilar artery. Soft tissues: Visualized neck soft tissues demonstrate no suspicious abnormalities. Bones: No suspicious bony lesions. Visualized cervical spine appears normally aligned. IMPRESSION: 1. Patient motion artifact obscures detail somewhat. Subtle acute infarcts are not excluded. 2. Age-related volume loss and moderate small vessel ischemic change. 3. Findings consistent with acute embolic occlusion of the proximal left posterior cerebral artery. 4. Moderate, approximately 50% calcified stenosis of the proximal left internal carotid artery. Comment: Findings were discussed with Dr. Young at the time of study dictation on 10/03/20 at 16:12 hours. Any quantitative measurements of stenosis were performed using NASCET criteria. Dictated by: Chad Dean M.D. on 10/03/2020 at 16:02 Approved by: Chad Dean M.D. on 10/03/2020 at 16:16 ECG Data Attestation: I personally reviewed and interpreted this ECG as follows: Prior ECG tracings: available for review Interpretation: Sinus rhythm premature atrial complexes, rate of 67, OK 162, QRS 72 and QTC of 490. Nonspecific change. No elevation appreciated. Patient has prior from 02/17/[address] changes. MDM Narrative Medical decision making narrative: Patient history was that she was on Eliquis. Patient's arrived later this evening and states that she is not on Eliquis. This was discussed with telestroke neurologist Dr. Hernandez who was at bedside. Decision was made to give tPA although patient has some relative contraindications. She was quite hypertensive earlier but this has been improving, she did receive labetalol earlier when her blood pressure was 199. Plan to transfer as code IR and ER to ER transfer. Dr. Vela is the accepting physician. Critical Care Time Critical Care Time Critical Care Time: Yes Total Critical Care Time: 120 Attestation: The high probability of a clinically significant, sudden or life threatening deterioration of the [neuro] system(s) required my full and direct attention, intervention and personal management. The aggregate critical care time was [120 120] minutes. This time is in addition to time spent performing reported procedures but includes the following: [x] Data Review and interpretation [x] Patient assessment and monitoring of vital signs [x] Documentation [x] Medication orders and management Discharge Plan Departure Patient Disposition: [facility] Clinical Impression: Acute alteration in mental status, Acute CVA (cerebrovascular accident) Prescriptions: No Action lorazepam 0.5 mg tablet 0.5 mg PO BID PRN (Reason: Anxiety) RF: 0 donepezil 10 mg tablet 10 mg PO DAILY RF: 0 simvastatin 20 mg tablet 20 mg PO DAILY RF: 0 Referrals: Ramsey Corbett MD [Primary Care Provider] -
[2020-10-03 15:46] LABS: Add Manual Diff / Slide Review NO; Basophils Absolute Auto 0 /uL (0-100); Basophils Percent Auto 0.7 % (0-2); Eosinophils Absolute Auto 0 /uL (0-450); Eosinophils Percent Auto 0.5 % (2-4); Hematocrit 40.5 % (36-46); Hemoglobin 13.3 g/dL (12.0-16.0); Lymphocytes Absolute Auto 900 /uL (1100-4500); Mean Corpuscular Hemoglobin 28.8 PG (26-34); Mean Corpuscular Volume 87.2 fL (80-100); Monocytes Absolute Auto 500 /uL (0-900); Monocytes Percent Auto 11.1 % (3-14); Neutrophils Absolute Auto 3000 /uL (1500-7000); Neutrophils Percent Auto 67.7 % (50-75); Platelet Count 199 X10^3/uL (150-400); Prothrombin Time 12.1 SECONDS (10.1-12.7); Red Blood Cell Count 4.64 X10^6/uL (4.0-5.2); Red Cell Distribution Width 22.5 % (11.6-14.8); White Blood Cell Count 4.4 X10^3/uL (4.5-11.0)
[2020-10-03 15:49] LABS: PTT Partial Thromboplastin Tim 30 SECONDS (26.4-36.2)
[2020-10-03 15:52] LABS: Alanine Aminotransferase 22 IU/L (<35); Albumin 3.9 g/dL (3.5-5.0); Albumin Globulin Ratio 1.3 (1.0-2.8); Alkaline Phosphatase 55 U/L (38-126); Aspartate Aminotransferase 32 IU/L (14-36); BUN Creatinine Ratio 17.8 (6-22); Bilirubin Total 0.3 mg/dL (0.2-1.3); Blood Urea Nitrogen 13 mg/dL (7-17); Calcium 9.5 mg/dL (8.4-10.2); Carbon Dioxide 31 mmol/L (22-32); Chloride 101 mmol/L (98-107); Creatine Kinase 64 U/L (30-135); Estimated Glomerular Filt Rate > 60.0 mL/min (>60); Globulin 3.1 g/dL (1.7-4.1); Glucose 85 mg/dL (80-110); HEMOLYSIS 37 (0-50); Potassium 3.8 mmol/L (3.4-5.1); Sodium 135 mmol/L (137-145)
[2020-10-03 15:59] LABS: COVID19 -Nasal RAPID Negative (Negative)
[2020-10-03] MEDS: SODIUM CHLORIDE 0.9% 1,000 ML 150 ML IV (16:01)
[2020-10-03 16:02] LABS: Troponin I 0.036 ng/mL (0.01-0.034)
[2020-10-03 16:06] LABS: Fractionated Inspired Oxygen 28; HCO3 ABG 27 mmol/L (22-26); Oxygen Saturation ABG 99 % (95-100); PCO2 ABG 36.6 mmHg (35-45); PO2 ABG 111 mmHg (80-100); TCO2 ABG 28 mmol/L (21-31); pH ABG 7.47 (7.35-7.45)
[2020-10-03 16:09] LABS: Ovalocytes 1+; Poikilocytosis 1+
[2020-10-03 16:51] LABS: UR Morphine/Opiate cutoff 300 Negative (Negative); Ur Creatinine Normal (Normal); Ur Specific Gravity Normal (Normal); Urine Amphetamines Negative (Negative); Urine Barbiturates Negative (Negative); Urine Benzodiazepines Negative (Negative); Urine Cocaine Negative (Negative); Urine MDMA Negative (Negative); Urine Methadone Negative (Negative); Urine Methamphetamines Negative (Negative); Urine Oxycodone Negative (Negative); Urine Phencyclidine Negative (Negative); Urine Tetrahydrocannabinol Negative (Negative); Urine Tricyclic Antidepressant Negative (Negative); Urine pH Normal (Normal)
[2020-10-03] MEDS: ALTEPLASE 100 MG VIAL 53.2 MG IV (18:04)
[2020-10-03] MEDS: ALTEPLASE 100 MG VIAL 5.3 MG IV (18:05)
--- NOTE | 2020-10-03 18:18 | PC.NURSE ---
TPA administration started at 1804. Mixed by pharmacy. Dosage and rates confirmed with nurse Joyner prior to administration. 1:1 observation for signs of hemorrhage and Q15 neuro/VS checks per policy.
--- NOTE | 2020-10-03 19:11 | PC.NURSE ---
TPA administration completed at 1905.
== END 2020-10-03 19:35 | disposition short-term general hospital (02) ==
PROVIDERS: Emergency Provider Emergency Medicine; PCP Internal Medicine
DX: I63.9 Cerebral infarction, unspecified (principal); I10 Essential (primary) hypertension; I48.91 Unspecified atrial fibrillation; R40.4 Transient alteration of awareness; Z20.822 Contact with and (suspected) exposure to COVID-19
CPT/HCPCS: 36415; 36600; 51701; 70450; 70496; 70498; 80053; 80305; 81003; 82550; 82805; 82962; 84484; 85025; 85610; 85730; 87635; 96361; 96374; 99285; 99291; 99292; C9803; J2997